=== PATIENT | male | born 1965 | race Caucasian/White ===

== ENCOUNTER → 2020-01-07 07:59 | Outpatient (BNVA) | payer OTHER, SELFPAY | PROVIDERS: PCP Orthopaedic Surgery; Referring Provider Orthopaedic Surgery; Visit Provider Physician Assistant | DX: Z76.89 Persons encountering health services in other specified circumstances (principal) ==

== ENCOUNTER 2020-01-19 14:00 | Outpatient (RCR) | payer OTHER, SELFPAY ==
--- NOTE | 2020-02-05 09:37 | MHC.PT.DC ---
[facility] [place] Office [place] Office [place] Office [address] Efra Lanza [address] [phone] F: [phone] F: [phone] F: [phone] F: [phone] Physical Therapy Discharge Report Diagnosis: neck pain Date of Surgery: NA Date of Evaluation: 11/16/19 Date of Discharge: 01/19/20 Treatments to Date: 14 Cancellations to Date: 0 No Shows to Date: 0 Discharge Status: Achieved Goals Improved Function Independent with HEP Discharge Summary: BEST placement is with my counterpressure on mid cervical spine and chin pressure at 75% of range of motion. Move until a light click of the esophagus during retraction. Keep head level because it makes a big difference. Pt shown how to reproduce this at home. He was told to do it hourly. The patient was educated about doing nerve glides intermittently. He was able to do cervical extension without peripheralization. However therapist OP caused right arm numbness. I instructed to stay with cervical retractions as HEP and to do retraction/extension cautiously. He was educated on red flags of cord compression, nerve compression. He was educated to stop exercises/stretches if symptoms progress Electronically signed by: Enedelia Grove DPT Please sign and return to therapist. Thank you for your referral.
== END 2020-02-05 13:32 | disposition other institution (70) ==
LOC: HO.PT 14:00
PROVIDERS: PCP Internal Medicine; Visit Provider Internal Medicine
DX: M50.30 Other cervical disc degeneration, unspecified cervical region (principal); M51.36 Other intervertebral disc degeneration, lumbar region
CPT/HCPCS: 93005; 97110; 97112; 97140

== ENCOUNTER 2020-02-04 07:15 | Outpatient (REF) | payer OTHER, SELFPAY ==
[2020-02-04 08:01] LABS: MANUAL DIFF FLAG NO
[2020-02-04 08:09] LABS: Basophils Percent Auto 0.4 % (0-2); Eosinophils Absolute Auto 0.2 X10*3/uL (0.0-0.4); Eosinophils Percent Auto 2.1 % (0-4); Hematocrit 45.3 % (42-52); Hemoglobin 15.4 g/dl (14.0-18.0); Imm Gran Abs Auto 0.02 X10*3/uL (0.00-0.03); Imm Gran Pct Auto 0.3 % (0.0-0.4); Lymphocytes Absolute Auto 2.8 X10*3/uL (1.2-4.9); Lymphocytes Percent Auto 38.2 % (20-40); Mean Corpuscular Hemoglobin 30.1 pg (27.0-33.0); Mean Corpuscular Volume 88.5 fL (80-98); Mean Platelet Volume 10.1 fL (9.4-12.4); Monocytes Absolute Auto 0.5 X10*3/uL (0.1-1.2); Monocytes Percent Auto 7.1 % (2-11); Neutrophils Absolute Auto 3.7 X10*3/uL (2.0-8.3); Neutrophils Percent Auto 51.9 % (45-73); Platelet Count 241 X10*3/uL (160-400); Red Blood Count 5.12 X10*6/uL (4.60-5.80); Red Cell Distribution Width 12.5 % (11.0-16.0); White Blood Count 7.2 X10*3/uL (4.8-10.8)
[2020-02-04 08:34] LABS: Alanine Aminotransferase 24 U/L (0-40); Albumin Level 4.4 g/dL (3.5-5.0); Alkaline Phosphatase 75 U/L (39-117); Anion Gap 12 (12-20); Aspartate Amino Transferase 18 U/L (5-37); Bilirubin Total 0.4 mg/dL (0.0-1.0); Blood Urea Nitrogen 27 mg/dL (9-16); C Reactive Protein 0.09 mg/dL (< or = 0.50); Calcium 9.1 mg/dL (8.4-10.2); Carbon Dioxide 24 mmol/L (22-29); Chloride 106 mmol/L (96-108); Cholesterol 100 mg/dL; Estimated Glomerular Filt Rate > 60; Glucose Fasting 143 mg/dL (60-99); HDL Cholesterol 25 mg/dL; Iron 72 mcg/dL (45-160); LDL Cholesterol Calculated 42 mg/dl; Magnesium 2.1 mg/dL (1.6-2.6); Percent Iron Saturation 22 % (15-50); Potassium 4.3 mmol/l (3.3-5.1); Sodium 138 mmol/L (135-145); Total Iron Binding Capacity 326 mcg/dL (228-428); Total Protein 6.9 g/dL (6.5-8.0); Triglycerides 167 mg/dL; Unsaturated Iron Binding 254 ug/dL
[2020-02-04 08:55] LABS: Ferritin 258 ng/mL (20-250); TSH reflex Free T4 2.02 mIU/mL (0.32-4.0); Vitamin D 25-OH Total 36.6 ng/mL (>30)
[2020-02-04 09:08] LABS: Prostate Specific Antigen Scr 0.55 ng/mL (<0.05-4.0); Thyroid Stimulating Hormone 1.97 uIU/mL (0.32-4.0)
[2020-02-04 09:23] LABS: Folate > 20.0 ng/mL (> or = 4.0); Vitamin B12 587 pg/mL (200-900); Vitamin B12 606 pg/mL (200-900)
[2020-02-04 10:23] LABS: Estimated Average Glucose 131 mg/dL; Hemoglobin A1c % 6.2 %
[2020-02-04 10:31] LABS: T4 Thyroxine 5.6 ug/dL (4.5-12.0)
[2020-02-05 12:17] LABS: Insulin Level Total 33.8 uIU/mL
[2020-02-05 21:43] LABS: Calcium (PTHI) 9.2 mg/dL (8.6-10.3); PTHI 43 pg/mL (14-64)
[2020-02-08 03:06] LABS: Zinc 65 mcg/dL (60-130)
[2020-02-08 13:07] LABS: Vitamin B1 8 nmol/L (8-30)
[2020-02-10 22:58] LABS: Vitamin A 51 mcg/dL (38-98)
== END 2020-02-04 07:16 | disposition home or self-care (01) ==
LOC: HO.LAB 07:15
PROVIDERS: Physician Assistant; Absent Provider Internal Medicine Cardiovascular Disease; PCP Internal Medicine; Visit Provider Internal Medicine
DX: E66.9 Obesity, unspecified (principal); I25.10 Atherosclerotic heart disease of native coronary artery without angina pectoris; I10 Essential (primary) hypertension; E78.5 Hyperlipidemia, unspecified; K21.9 Gastro-esophageal reflux disease without esophagitis; M50.30 Other cervical disc degeneration, unspecified cervical region; M51.36 Other intervertebral disc degeneration, lumbar region; G25.81 Restless legs syndrome
CPT/HCPCS: 36415; 80053; 80061; 82306; 82607; 82728; 82746; 83036; 83525; 83540; 83735; 83970; 84153; 84425; 84436; 84443; 84590; 84630; 85025; 86140

== ENCOUNTER → 2020-03-01 08:16 | Outpatient (BNVA) | payer OTHER, SELFPAY | PROVIDERS: PCP Internal Medicine; Visit Provider Physician Assistant | DX: Z76.89 Persons encountering health services in other specified circumstances (principal) ==

== ENCOUNTER → 2020-04-22 08:23 | Outpatient (BNVA) | payer OTHER, SELFPAY | PROVIDERS: PCP Internal Medicine; Visit Provider Dietitian, Registered ==

== ENCOUNTER 2020-11-24 08:00 | Outpatient (RCR) | payer OTHER, SELFPAY ==
--- NOTE | 2020-10-13 11:57 | MHC.PT.EP ---
[facility] [place] Office [place] Office [place] Office [address] Efra Lanza [address] [phone] F: [phone] F: [phone] F: [phone] F: [phone] Physical Therapy Plan of Care Date of Evaluation: Date of Surgery: none Diagnosis: low back pain Assessment: The patient arrived reporting low back pain after performing a week of building a deck which required lots of digging and manual labor. He has symptoms consistent with posterolateral derangements in his lower back. He appears to dysfunction on the left L4-5 and on the right at L1-2. He has poor squat mechanics, sitting posture, and sit to stand posture as well as poor bed mobility mechanics. I did preliminary education regarding neutral spine, and sitting/sleeping postures that will decrease aggravation to the spine. He responded best to neutral spine movements and did not tolerate REIL or legs in positional traction position. He will benefit from slow progression mechanical assessment to find positions and movements that can reduce his pain. He is an excellent candidate for skilled PT. Frequency and Duration: The patient will be seen 2x/week x 4 weeks Short Term Goals: 2 weeks 1.Pt to able to demonstrate proper sitting posture with the use of a lumbar roll to decrease aggravating factors. 2.Pt to be able to demonstrate proper posture for common leisure activities such as phone/tablet use. 3.For the patient to demonstrate proper upright sitting posture with use of the lumbar roll to improve compliance and carryover. Mcfp Goals: 4 weeks - 1.The patient to demonstrate proper lifting mechanics for household chore activities to show improved functional mobility. 2.The patient to report no leg or hip pain in order to show centralization of pain and reduction of lumbar derangement 3. Pt to be able to demonstrate self management of lumbar pain by demonstration of HEP. Treatment Plan: Modalities to reduce pain, spasms and effusion. Manual therapy to restore motion and function. Therapeutic exercise to improve strength and flexibility. Neuromuscular re-education for posture and balance. Therapeutic activities to return to functional activities of daily living. Electronically signed by: Enedelia Grove PT DPT Please sign and return to therapist. Thank you for your referral.
== END 2020-12-04 09:00 | disposition home or self-care (01) ==
LOC: HO.PT 08:00
PROVIDERS: PCP Internal Medicine; Visit Provider Internal Medicine
DX: M54.5 Low back pain (principal)
CPT/HCPCS: 97110; 97112; 97162

== ENCOUNTER → 2020-12-22 11:13 | Outpatient (BNVA) | payer OTHER, SELFPAY | PROVIDERS: PCP Internal Medicine; Referring Provider Internal Medicine; Visit Provider Internal Medicine Cardiovascular Disease | DX: I25.10 Atherosclerotic heart disease of native coronary artery without angina pectoris (principal); I10 Essential (primary) hypertension | CPT/HCPCS: 93005 ==

== ENCOUNTER → 2021-04-20 08:29 | Outpatient (REF) | payer OTHER, SELFPAY ==
--- NOTE | 2021-04-20 08:33 | CA_ITS ---
Transthoracic Echocardiogram Patient (Last, First, Middle): Jose Roberto Grimes J Gender: Male Date of : 1965 Age: 56 Procedure Date: 04/20/2021 Procedure Type: Transthoracic Echocardiogram Location: OP Height: 170.18 cm Weight: 104.33 kg BSA: 2.15 m2 Heart Rate: bpm BP: 126 / 80 mmHg Pulpwood Cutter: TRINITY Referring MD: Dave Tolentino MD Symptoms: I10 - Essential (primary) hypertension Study Quality: Good ECG Rhythm: Sinus Conclusions: - The left ventricular systolic function is normal. The visually estimated ejection fraction is between 60-65%. - No obvious valvular pathology seen on this study. Findings Left Ventricle Normal left ventricular cavity size. There is mildly increased left ventricular wall thickness. The left ventricular systolic function is normal. The visually estimated ejection fraction is between 60-65%. There is no evidence of regional wall motion abnormalities. LV peak GLS -17.3%. Right Ventricle Normal right ventricular cavity size and systolic function. Atria Both atria are normal in size. Aortic Valve There is a normal trileaflet aortic valve. There is no aortic valve stenosis. There is no aortic valve regurgitation. Mitral Valve The mitral valve appears normal. There is no mitral valve regurgitation. There is no mitral valve stenosis. Pulmonic Valve The pulmonic valve was not well visualized. Tricuspid Valve Normal tricuspid valve structure. There is trace tricuspid valve regurgitation. The pulmonary artery systolic pressure is normal. Great Vessels The aortic annulus, sinuses of valsalva, and asc aorta are normal in size. Venous The inferior vena cava is normal in size and collapses greater than 50% with inspiration. Pericardium/Pleural There is no evidence of pericardial effusion. Prior Study Comparison No significant change compared to prior study dated: 08/23/2015. Recommendations, Care & Conclusions No obvious valvular pathology seen on this study. Measurements M-Mode Liner Measurements Normals - Women/Men IVSd: 1.61 0.6-0.9/0.6-1.0 cm LVIDd: 4.47 3.9-5.3/4.2-5.9 cm LVIDd Index: 2.08 1.9-3.2 cm/m2 LVIDs: 2.65 2.0-3.8 cm LVPWd: 1.43 0.6-0.9/0.6-1.0 cm LV Mass: 347.62 67-162/88-224g LV Mass Index: 161.68 43-95/49-115 g/m2 M-Mode Volumes LV EDV: 91.00 LV ESV: 25.80 2D Linear Measurements IVSd: 1.36 0.6-0.9/0.6-1.0 cm LVIDd: 4.37 3.9-5.3/4.2-5.9 cm LVIDd Index: 2.03 2.4-3.2/2.2-3.1 cm/m2 LVIDs: 2.31 2.0-3.6 cm LVPWd: 1.21 0.7-1.1 cm Ao Root: 3.50 2.1-3.5 cm LA Diam: 3.80 2.7-3.8/3.0-4.0 cm LAIDs Index: 1.77 1.5-2.3 cm/m2 LV Mass: 260.83 67-162/88-224 g LV Mass Index: 121.32 43-95/49-115 g/m2 LVOT Diam: 2.10 3.0+(-)1.3 cm 2D Systolic Function EF 4C: 70.70 >55% M-Mode Systolic Function FS: 40.70 27-47/25-43% LVEF: 71.60 >55% Mitral Valve MV Pk E: 0.70 MV PK A: 0.63 MV Decel Time: 218.00 E/A: 1.10 E'Lateral: 8.59 E'Medial: 6.53 E/E' Med: 10.80 E/E' Lat: 8.20 PHT: 64.00 MVA PHT: 3.44 Decel [place]: 3.22 Aortic Valve AoV Pk Jerry: 1.28 AoV Pk Grad: 7.00 LVOT LVOT Pk Jerry: 1.03 LVOT Mn Jerry: 0.72 LVOT VTI: 0.22 LVOT Pk Grad: 4.00 LVOT Mn Grad: 2.00 LVOT Diam: 2.10 LVOT Area: 3.46 Diastolic Function MV Pk E: 0.70 MV Pk A: 0.63 E/A: 1.10 E'Medial: 6.53 E/E' Med: 10.80 E' Laterial: 8.59 E/E' Lat: 8.20 Right Ventricle TAPSE (mm): 3.10 TVS' Jerry: 15.80 Tricuspid Valve TR Pk Jerry: 1.63 TR Pk Grad: 11.00 RA Press: 3.00 RVSP: 14.00 Great Vessels Aorta Ao Root-2D: 3.50 2.0-3.7 cm Ao Asc: 3.30 2.1-3.4 cm Updated in Other Vendor System with Status of Final Ki Mills MD electronically signed on 04/22/2021 1:14:44 PM with status of Final
== END ==
LOC: HO.CARD 08:29
PROVIDERS: PCP Internal Medicine; Visit Provider Internal Medicine Cardiovascular Disease
DX: I10 Essential (primary) hypertension (principal)
CPT/HCPCS: 93306; 93356

== ENCOUNTER → 2021-05-26 15:18 | Outpatient (BNVA) | payer OTHER, SELFPAY | PROVIDERS: PCP Internal Medicine | DX: Z13.89 Encounter for screening for other disorder (principal) | CPT/HCPCS: 99202 ==

== ENCOUNTER → 2021-05-29 08:28 | Outpatient (BNVA) | payer OTHER, SELFPAY | PROVIDERS: PCP Internal Medicine | DX: Z13.89 Encounter for screening for other disorder (principal) | CPT/HCPCS: 99213 ==

== ENCOUNTER → 2021-08-14 11:45 | Outpatient (BNVA) | payer OTHER, SELFPAY | PROVIDERS: PCP Internal Medicine; Visit Provider Physician Assistant Medical | DX: Z13.89 Encounter for screening for other disorder (principal) | CPT/HCPCS: 73564; 99203 ==

== ENCOUNTER → 2021-08-18 07:48 | Outpatient (BNVA) | payer OTHER, SELFPAY | PROVIDERS: PCP Internal Medicine; Visit Provider Physician Assistant Medical | DX: Z13.89 Encounter for screening for other disorder (principal) | CPT/HCPCS: 99213 ==

== ENCOUNTER → 2021-08-21 09:44 | Outpatient (BNVA) | payer OTHER, SELFPAY | PROVIDERS: PCP Internal Medicine; Visit Provider Physician Assistant Medical | DX: Z13.89 Encounter for screening for other disorder (principal) | CPT/HCPCS: 99213 ==

== ENCOUNTER 2021-09-29 07:18 | Outpatient (REF) | payer OTHER, SELFPAY ==
--- NOTE | ~2021-09-29 | XR_ITS ---
EXAMINATION: KNEE X-RAY CLINICAL INFORMATION: Pain COMPARISON: Previous x-ray July 2021 TECHNIQUE: Standing AP view of both knees and lateral and sunrise view of the right knee FINDINGS: Right knee: There is varus angulation. Bone alignment is otherwise normal. No fracture or dislocation is seen. There is severe arthritis at the medial femoral tibial and patellofemoral joints. There is a joint effusion. Standing AP view of the left knee is unremarkable. XR/XR knee RT 2V IMPRESSION: Right knee: Varus angulation, arthritis and joint effusion.
--- NOTE | ~2021-09-29 | XR_ITS ---
EXAMINATION: KNEE X-RAY CLINICAL INFORMATION: Pain COMPARISON: Previous x-ray July 2021 TECHNIQUE: Standing AP view of both knees and lateral and sunrise view of the right knee FINDINGS: Right knee: There is varus angulation. Bone alignment is otherwise normal. No fracture or dislocation is seen. There is severe arthritis at the medial femoral tibial and patellofemoral joints. There is a joint effusion. Standing AP view of the left knee is unremarkable. XR/XR knee standing BI IMPRESSION: Right knee: Varus angulation, arthritis and joint effusion.
== END 2021-09-29 07:19 | disposition home or self-care (01) ==
LOC: HO.HOSX 07:18
PROVIDERS: Visit Provider Physician Assistant
DX: M17.11 Unilateral primary osteoarthritis, right knee (principal); M70.51 Other bursitis of knee, right knee; M25.562 Pain in left knee
CPT/HCPCS: 20610; 73560; 73565; 99202; J1020

== ENCOUNTER → 2021-10-19 09:46 | Outpatient (BNVA) | payer OTHER, SELFPAY | PROVIDERS: PCP Internal Medicine; Visit Provider Physician Assistant Medical | DX: Z13.89 Encounter for screening for other disorder (principal) | CPT/HCPCS: 99213 ==

== ENCOUNTER → 2021-12-19 12:57 | Outpatient (BNVA) | payer OTHER, SELFPAY | PROVIDERS: PCP Internal Medicine; Referring Provider Internal Medicine; Visit Provider Internal Medicine Cardiovascular Disease | DX: I25.10 Atherosclerotic heart disease of native coronary artery without angina pectoris (principal); I10 Essential (primary) hypertension | CPT/HCPCS: 93005 ==

== ENCOUNTER → 2022-08-22 13:49 | Outpatient (BNVA) | payer OTHER, SELFPAY | PROVIDERS: PCP Internal Medicine; Visit Provider Physician Assistant | DX: Z13.89 Encounter for screening for other disorder (principal) | CPT/HCPCS: 11730; 99203 ==

== ENCOUNTER → 2022-08-24 13:48 | Outpatient (BNVA) | payer OTHER, SELFPAY | PROVIDERS: PCP Internal Medicine; Visit Provider Internal Medicine | DX: Z13.89 Encounter for screening for other disorder (principal) | CPT/HCPCS: 99213 ==

== ENCOUNTER 2022-10-31 09:08 | Outpatient (AMB) | payer OTHER, SELFPAY ==
[2022-10-31 09:12] VITALS: BP 132/70; PULSE 84; O2SAT 98; BMI 37.1
--- NOTE | 2022-10-31 09:12 | A.OFFPC_ITS ---
Vital Signs 10/31/22 09:12 Height 5 ft 7 in Weight 237 lb BMI 37.1 BP 132/70 Blood Pressure Location Lt brachial Position Sitting Pulse 84 Pulse Source Pulse Oximeter Pulse Oximetry (%) 98 Oxygen Delivery Method Room Air Intake Visit Reasons: PE Allergies No Known Allergies Allergy (Verified 10/31/22 09:13) Medication List - Last Reconciled 10/31/22 by Tor Sullivan MD aspirin 81 mg PO DAILY atorvastatin 80 mg PO DAILY gabapentin 100 mg PO BEDTIME 30 days lidocaine 5% 1 appl topical TID PRN lisinopril 10 mg PO DAILY 90 days metoprolol tartrate 50 mg PO BID nitroglycerin 0.4 mg sublingual Q5M PRN pantoprazole 40 mg PO DAILY polymyxin B sulf-trimethoprim 10,000 unit- 1 mg/mL (Polytrim) 1 drp ophthalmic (eye) Q3H 7 days ranolazine ER 500 mg PO BID ropinirole 0.5 mg (2 x 0.25 mg) PO BEDTIME Tobacco use date assessed: 10/31/22 Dental Screening Dental Screen Date: 10/31/22 Did you have a dental visit in the last 12 months?: Yes Did you have a dental problem in the last 6 months where you did not have access to dental care?: No Was dental information given to patient?: Patient has dentist HPI PE HPI Details 57-year-old obese male with coronary artery disease hypertension hy percholesterolemia GERD impaired glucose tolerance and degenerative disc disease coming in for physical exam. Last seen in September 2021 and blood work was requested at that time. Colonoscopy is up-to-date 2018. Cardiology last seen in November 2021 continuing with aggressive medical therapy aspirin statin LDL goal of less than 70 weight loss program as for the blood pressure target goal of 130/84 continued lisinopril last blood work was 2020. seen target and states lacrimal duct plugged. - states having greenish discharge and concern about infection. dizzy - 2 week s feels tired, not passing , PFSH Medical History (Updated 10/31/22 @ 09:40 by Tor Sullivan MD) Anxiety CAD (coronary artery disease) Carpal tunnel syndrome Degenerative disc disease GERD (gastroesophageal reflux disease) History of COVID-19 HTN (hypertension) Hyperlipidemia Impaired fasting glucose Obesity (BMI 30-39.9) Restless leg syndrome Vitamin B12 deficiency Surgical History History of colonoscopy History of esophagogastroduodenoscopy (EGD) History of meniscectomy of right knee History of right knee surgery History of root canal procedure Hx of cardiac cath Stented coronary artery Family History (Updated 10/31/22 @ 09:14 by Mariann Burton CMA) Father CAD (coronary artery disease) Mother Diabetes Lung cancer Social History (Updated 10/31/22 @ 09:45 by Tor Sullivan MD) Housing: Apartment Alcohol intake: never Patient Tobacco Use Status: Former Tobacco user Tobacco use type: Cigarette Years Smoked: quit 1999 hx of 2 pack a day e-Cigarette/Vaping Use: Never Used Second Hand Smoke Exposure: Yes Current occupational status: employed Cognitive needs: No Hearing needs: No Vision needs: No Questionnaire PHQ-9 Over the last 2 weeks, how often have you been bothered by any of the following problems? 1. Little interest or pleasure in doing things: not at all 2. Feeling down, depressed, or hopeless: not at all 3. Trouble falling or staying asleep, or sleeping too much: not at all 4. Feeling tired or having little energy: not at all 5. Poor appetite or overeating: not at all 6. Feeling bad about yourself - or that you are a failure or have let yourself or your family down: not at all 7. Trouble concentrating on things, such as reading the newspaper or watching television: not at all 8. Moving or speaking so slowly that other people could have noticed. Or the opposite - being so fidgety or restless that you have been moving around a lot more than usual: not at all 9. Thoughts that you would be better off or of hurting yourself in some way: not at all Total score: 0 Source: Developed by Drs. Ludin Beltran, Digna Blancas, Carrington Oquendo and colleagues, with an educational eliseo from [employer]. Thrive Questionnaire Date Thrive assessed: 10/31/22 I am a: Patient What is your living situation today?: I have a steady place to live Within the past 12 months, did the food you bought not last and you didn't have the money to get more?: Never true Within the past 12 months, did you worry whether your food would run out before you got money to buy more?: Never true Do you have trouble paying for medicines?: No Do you have trouble getting transportation to medical appointments?: No Do you have trouble paying your heating and electricity bill?: No Do you have trouble taking care of your child, family member or friend?: No Do you have trouble with day-to-day activities such as bathing, preparing meals, shopping, managing finances, etc.?: No Are you currently unemployed and looking for a job?: No Are you interested in more education?: No Currently or been in a relationship where the following occur: no concerns reported AUDIT C Alcohol Use Questionnaire (AUDIT-C) 1. How often do you have a drink containing alcohol?: Never 3. How often do you have six or more drinks on one occasion?: Never Total Score: 0 JAZZMINE-7 AMB Questionnaire JAZZMINE-7 Date JAZZMINE - 7 assessed: 10/31/22 Feeling nervous, anxious, or on edge: 0 = Not at all Not being able to stop or control worryin = Not at all Worrying too much about different things: 0 = Not at all Trouble relaxin = Not at all Being so restless that it is hard to sit still: 0 = Not at all Becoming easily annoyed or irritable: 0 = Not at all Feeling afraid as if something awful might happen: 0 = Not at all Total JAZZMINE-7 score (0-4 normal; 5-9 mild; 10-14 moderate; 15-21 severe): 0 Source: Developed by Drs. Ludin Beltran, Digna Blancas, Carrington Oquendo and colleagues, with an educational eliseo from [employer]. Review of Systems Const Denies poor appetite and Denies weakness Eyes Denies no additional complaints ENT Reports Normal hearing present, Denies dizziness, Denies nasal congestion, Denies tinnitus and Denies sore throat Card Denies chest pain, Denies syncope, Denies rapid heart rate and Denies dyspnea Resp Denies cough and Denies dyspnea GI Denies change in stool character, Reports constipation, Denies diarrhea, Denies nausea and Denies vomiting Denies dysuria and Denies urinary frequency Neuro Reports Normal hearing present, Denies confusion, Denies dizziness, Denies syncope and Denies weakness Psych Denies confusion Physical exam (Primary Care) Vital Signs: Last Vital Signs Pulse 84 10/31/22 09:12 BP 132/70 10/31/22 09:12 Pulse Ox 98 10/31/22 09:12 Oxygen Delivery Method Room Air 10/31/22 09:12 Care Plan Goal for BP management: L big toe nail white and unroofed guaiac negative prostate N BMI result Body Mass Index 37.1 Tobacco/Smoking Status: Tobacco use Status Tobacco use date assessed 10/31/22 10/31/22 09:17 Patient Tobacco Use Status Former Tobacco user 10/31/22 09:17 Tobacco use type Cigarette 10/31/22 09:17 e-Cigarette/Vaping Use Never Used 10/31/22 09:17 PHQ-9: PHQ-9 Score PHQ-9: Total score 0 10/31/22 09:17 Thrive Assessment: Date of Thrive Assessment Date Thrive assessed 10/31/22 10/31/22 09:17 Currently or been in a relationship where the following occur: no concerns reported Const General: No confusion Orientation/consciousness: No confusion HENMT Head: Yes normocephalic Ears: external ears normal and TM's normal bilaterally Face and sinus: Yes normal facial exam Mouth: moist mucous membranes Throat: Yes tonsils normal Eyes Conjunctivae: conjunctivae normal Pupils: Equal, round and reactive pupils present and Pupil accommodation reflex normal Direct Ophthalmoscopy: normal light reflex Neck Neck: No lymphadenopathy Thyroid: Thyroid normal Chest Chest palpation & inspection: normal inspection of the chest Resp Effort & Inspection: normal respiratory effort and no audible wheezes Auscultation: clear to auscultation bilaterally, no crackles, no wheezes and lung sounds not diminished Cardio Rate: regular rate Rhythm: regular rhythm Peripheral pulses: radial pulses present and dorsalis pedis present GI Palpation (GI): no masses Auscultation: normal bowel sounds and normoactive bowel sounds Male General Exam: Yes normal external exam Skin General skin exam: no rashes or lesions noted Rashes: no rashes Neuro General: No confusion Cranial nerves: Yes Equal, round and reactive pupils present and Yes Normal hearing present Cognition (Neuro): normal cognition Gait exam (Neuro): Normal gait present Motor exam (neuro): 5/5 motor strength present throughout Deep tendon reflexes (DTR's): Right brachioradialis reflex intensity grade: 2+, Left brachioradialis reflex intensity grade: 2+, Right patellar reflex intensity grade: 2+ and Left patellar reflex intensity grade: 2+ Extrem General: No edema Assessment and Plan Assessment & Plan (1) Annual physical exam: Code(s): Z00.00 - Encounter for general adult medical examination without abnormal findings (2) CAD (coronary artery disease): Comment: (MIKE to proximal LAD - 09/2014) Code(s): I25.10 - Atherosclerotic heart disease of [place] coronary artery without angina pectoris Plan: Control the cholesterol, weight, blood pressure (3) HTN (hypertension): Code(s): I10 - Essential (primary) hypertension (4) Hyperlipidemia: Code(s): E78.5 - Hyperlipidemia, unspecified Plan: Continue with blood pressure medication. Decrease salt intake and exercise continue with lisinopril 10 mg once a day metoprolol 50 mg twice a day (5) GERD (gastroesophageal reflux disease): Code(s): K21.9 - Gastro-esophageal reflux disease without esophagitis Plan: Avoid the foods that causes that usually spicy foods, tomato products, juices, coffee, soda and foods that your sensitive to. After eating do not lie down, allow 3-4 hours before in lie down. And keep the head of bed above 30 degrees to avoid the acid from going up. (6) Obesity (BMI 30-39.9): Code(s): E66.9 - Obesity, unspecified Plan: Diet and exercise (7) Impaired glucose tolerance: Code(s): R73.02 - Impaired glucose tolerance (oral) Plan: Decrease the amount of carbohydrate intake, pasta, bread, rice and potatoes are all sugar and that is aside from all the sweet stuff, remember that fruits are good but they are Sweet also. 2019 blood work showing A1c of 6.2 patient needs blood work (8) Degenerative disc disease: Comment: Cervical and lumbar, 1997 lumbar disc herniation, MRI January 2019 multiple disc protrusions and severe spinal stenosis, lumbar multilevel spondylosis with thecal sac distortion Plan: Keep active lose the weight (9) Knee osteoarthritis: Code(s): M17.9 - Osteoarthritis of knee, unspecified (10) Conjunctivitis: Code(s): H10.9 - Unspecified conjunctivitis (11) Restless leg syndrome: Code(s): G25.81 - Restless legs syndrome Orders: Orders Vitamin B12 and Folate Today I25.10 - Atherosclerotic heart disease of [place] coronary artery without angina pectoris Comprehensive Met. Panel Today I25.10 - Atherosclerotic heart disease of [place] coronary artery without angina pectoris Hemoglobin A1c Today R73.02 - Impaired glucose tolerance (oral) Lipid Panel Today E78.00 - Pure hypercholesterolemia, unspecified, I25.10 - Atherosclerotic heart disease of [place] coronary artery without angina pectoris Prostate Specific Antigen Scr Today I10 - Essential (primary) hypertension Free T4 (Free Thyroxine) Today I25.10 - Atherosclerotic heart disease of [place] coronary artery without angina pectoris Thyroid Stimulating Hormone Today I25.10 - Atherosclerotic heart disease of [place] coronary artery without angina pectoris Complete Blood Count Auto Diff Today I25.10 - Atherosclerotic heart disease of [place] coronary artery without angina pectoris Medications: New polymyxin B sulf-trimethoprim 10,000 unit- 1 mg/mL (Polytrim) while awake; do not exceed 6 doses in 24 hours 1 drp ophthalmic (eye) Q3H 7 days 10 mL 0RF H10.9 - Unspecified conjunctivitis lidocaine 5% leave on most painful area for up to 12 hrs 2 patches topical DAILY 180 ea 3RF Changed From ropinirole 0.5 mg (2 x 0.25 mg) PO BEDTIME 180 tabs 1RF G25.81 - Restless legs syndrome To ropinirole 0.75 mg (3 x 0.25 mg) PO BEDTIME 90 days 270 tabs 1RF G25.81 - Restless legs syndrome Discontinued lidocaine 5% Discontinued Reason: Doctor's Order 1 appl topical TID PRN 35.44 grams 0RF pain Coding Level of Care Code Est Pt Prev Care 40-64y([id number]) Diagnoses Annual physical exam Z00.00 CAD (coronary artery disease) I25.10 HTN (hypertension) I10 Hyperlipidemia E78.5 GERD (gastroesophageal reflux disease) K21.9 Obesity (BMI 30-39.9) E66.9 Impaired glucose tolerance R73.02 Degenerative disc disease Knee osteoarthritis M17.9 Conjunctivitis H10.9 Restless leg syndrome G25.81
== END 2022-10-31 10:07 | disposition home or self-care (01) ==
PROVIDERS: PCP Internal Medicine; Visit Provider Internal Medicine
DX: Z00.00 Encounter for general adult medical examination without abnormal findings (principal); I10 Essential (primary) hypertension; K21.9 Gastro-esophageal reflux disease without esophagitis; I25.10 Atherosclerotic heart disease of native coronary artery without angina pectoris; E78.5 Hyperlipidemia, unspecified; E66.9 Obesity, unspecified; R73.02 Impaired glucose tolerance (oral); M17.9 Osteoarthritis of knee, unspecified; H10.9 Unspecified conjunctivitis; G25.81 Restless legs syndrome
CPT/HCPCS: 99396

== ENCOUNTER 2022-12-17 06:46 | Outpatient (REF) | payer OTHER, SELFPAY ==
[2022-12-17 06:55] LABS: MANUAL DIFF FLAG NO
[2022-12-17 07:19] LABS: Basophils Percent Auto 0.4 % (0-2); Eosinophils Absolute Auto 0.2 X10*3/uL (0.0-0.4); Eosinophils Percent Auto 3.2 % (0-4); Hemoglobin 15.1 g/dl (14.0-18.0); Imm Gran Abs Auto 0.02 X10*3/uL (0.00-0.03); Imm Gran Pct Auto 0.3 % (0.0-0.4); Lymphocytes Percent Auto 42.5 % (20-40); Mean Corpuscular HGB Conc 35.1 g/dl (31.0-36.0); Mean Corpuscular Hemoglobin 31.2 pg (27.0-33.0); Mean Corpuscular Volume 88.8 fL (80.0-98.0); Mean Platelet Volume 10.1 fL (9.4-12.4); Monocytes Absolute Auto 0.6 X10*3/uL (0.1-1.2); Monocytes Percent Auto 8.2 % (2-11); Neutrophils Absolute Auto 3.2 x10*3/uL (2.0-8.3); Neutrophils Percent Auto 45.4 % (45-73); Platelet Count 226 X10*3/uL (160-400); Red Blood Count 4.84 X10*6/uL (4.60-5.80); Red Cell Distribution Width 12.6 % (11.0-16.0); White Blood Count 6.9 X10*3/uL (4.8-10.8)
[2022-12-17 08:06] LABS: Alanine Aminotransferase 29 U/L (0-40); Albumin Level 4.3 g/dL (3.5-5.0); Alkaline Phosphatase 78 U/L (39-117); Anion Gap 13 (12-20); Aspartate Amino Transferase 22 U/L (5-37); Bilirubin Total 0.8 mg/dL (0.0-1.0); Blood Urea Nitrogen 16 mg/dL (9-16); Calcium 9.3 mg/dL (8.4-10.2); Carbon Dioxide 25 mmol/L (22-29); Chloride 105 mmol/L (96-108); Cholesterol 87 mg/dL (<200); Estimated Glomerular Filt Rate > 60; Glucose Random 153 mg/dL (60-115); HDL Cholesterol 24 mg/dL (>40); LDL Cholesterol Calculated 45 mg/dL (<100); Potassium 4.4 mmol/L (3.3-5.1); Sodium 139 mmol/L (135-145); Total Protein 6.8 g/dL (6.5-8.0); Triglycerides 93 mg/dL (<150)
[2022-12-17 08:13] LABS: Free T4 (Free Thyroxine) 0.81 ng/dL (0.71-1.85); Thyroid Stimulating Hormone 2.28 uIU/mL (0.32-4.0)
[2022-12-17 08:23] LABS: Folate 15.9 ng/mL (> or = 4.0); Prostate Specific Antigen Scr 0.38 ng/mL (<0.05-4.0); Vitamin B12 1072 pg/mL (200-900)
[2022-12-17 08:27] LABS: Estimated Average Glucose 140 mg/dL; Hemoglobin A1c % 6.5 % (<6.0)
== END 2022-12-17 06:47 | disposition home or self-care (01) ==
LOC: HO.LAB 06:46
PROVIDERS: PCP Internal Medicine; Visit Provider Internal Medicine
DX: Z12.5 Encounter for screening for malignant neoplasm of prostate (principal); I25.10 Atherosclerotic heart disease of native coronary artery without angina pectoris; E78.00 Pure hypercholesterolemia, unspecified; R73.02 Impaired glucose tolerance (oral); I10 Essential (primary) hypertension
CPT/HCPCS: 36415; 80053; 80061; 82607; 82746; 83036; 84153; 84439; 84443; 85025

== ENCOUNTER 2022-12-20 12:42 | Outpatient (AMB) | payer OTHER, SELFPAY ==
[2022-12-20 12:46] VITALS: BP 124/74; PULSE 72; BMI 37.3
--- NOTE | 2022-12-20 12:46 | MHC.OFFVIS ---
Intake Vital Signs 12/20/22 12:46 Height 5 ft 7 in Weight 238 lb 1.588 oz BMI 37.3 BP 124/74 Blood Pressure Location Lt brachial Position Sitting Pulse 72 Intake Visit Reasons: 1 year follow up Intake Note: 1 year follow-up feeling good [employer] Required: No Allergies No Known Allergies Allergy (Verified 10/31/22 09:13) Medication List - Last Reconciled 12/20/22 by Dave Tolentino MD aspirin 81 mg PO DAILY atorvastatin 80 mg PO DAILY gabapentin 100 mg PO BEDTIME 30 days lidocaine 5% 2 patches topical DAILY lisinopril 10 mg PO DAILY 90 days metoprolol tartrate 50 mg PO BID nitroglycerin 0.4 mg sublingual Q5M PRN pantoprazole 40 mg PO DAILY polymyxin B sulf-trimethoprim 10,000 unit- 1 mg/mL (Polytrim) 1 drp ophthalmic (eye) Q3H 7 days ranolazine ER 500 mg PO BID ropinirole 0.75 mg (3 x 0.25 mg) PO BEDTIME 90 days HPI HPI Comments History of Present Illness Details Jose Roberto comes for follow-up. He said overall he has slow down. He is having issues with the knee and symptoms with exertion but is not interested in currently pursuing knee surgery. He also has spine issues. When he is bending over and working on my new job for long period time he gets tingling in his hands and chest pain. Symptoms usually does not happen when he is exerting himself. Takes all his medications. Does not monitor blood pressure usually on a regular basis. His last LDL is 45 mg/dL. [facility] Medical History History of COVID-19 Restless leg syndrome Degenerative disc disease Anxiety Vitamin B12 deficiency Impaired fasting glucose Carpal tunnel syndrome GERD (gastroesophageal reflux disease) Obesity (BMI 30-39.9) Hyperlipidemia HTN (hypertension) CAD (coronary artery disease) Surgical History History of esophagogastroduodenoscopy (EGD) History of colonoscopy History of meniscectomy of right knee History of right knee surgery History of root canal procedure Stented coronary artery Hx of cardiac cath Family History Father CAD (coronary artery disease) Mother Diabetes Lung cancer Social History Housing: Apartment Alcohol intake: never Patient Tobacco Use Status: Former Tobacco user Tobacco use type: Cigarette Years Smoked: quit 2000 hx of 2 pack a day e-Cigarette/Vaping Use: Never Used Second Hand Smoke Exposure: Yes Current occupational status: employed Cognitive needs: No Hearing needs: No Vision needs: No Review of Systems Const Denies chills, Denies fatigue, Denies fever(s), Denies frequent falls, Denies weakness, Denies weight gain and Denies weight loss ENT Denies dizziness Card Denies chest pain, Denies leg edema, Denies lightheadedness, Denies palpitations, Denies dyspnea, Denies dyspnea on exertion, Denies orthopnea and Denies other (loss of consciousness) Resp Denies cough, Denies dyspnea and Denies dyspnea on exertion GI Denies hematochezia and Denies change in stool character Musc Denies abnormal gait, Denies muscle weakness, Denies numbness, Denies radiating pain into limb and Denies tingling Neuro Denies abnormal gait, Denies dizziness, Denies frequent falls, Denies numbness, Denies tingling and Denies weakness Endo Denies fatigue and Denies palpitations Physical Exam Vital Signs: Last Vital Signs Pulse 72 12/20/22 12:46 BP 124/74 12/20/22 12:46 BMI result Body Mass Index 37.3 Const General: cooperative, healthy appearing, comfortable, no acute distress, alert and awake Nutritional Appearance: obese Orientation/consciousness: patient oriented x3 Limitations: no limitations HEENT Head: Yes normal to inspection, Yes normocephalic and Yes atraumatic Eyes General: appearance normal, both eyes and all related structures Neck Neck: Yes trachea midline and Yes no JVD Carotids: other ( No carotid bruit) Chest Chest palpation & inspection: normal inspection of the chest Resp Effort & Inspection: normal respiratory effort Auscultation: clear to auscultation bilaterally Cardio Jugular venous distension: no JVD Palpation: normal PMI Rate: regular rate Rhythm: regular rhythm Heart sounds: S1 normal heart sound present, S2 normal heart sound present and Other heart sounds present ( S4 present) Peripheral pulses: Peripheral pulses 2+ throughout GI Inspection: Yes normal to inspection and Yes obesity Auscultation: normal bowel sounds Skin General skin exam: elasticity normal and turgor normal Neuro General: patient oriented x3 and no focal motor deficits Extrem General: Yes no clubbing, cyanosis or edema Psych Appearance: grossly normal Office Procedures EKG Details: EKG shows normal sinus rhythm with normal EKG at 72 beats per minute [id number], Complete Assessment & Plan Assessment & Plan (1) CAD (coronary artery disease): Comment: (MIKE to proximal LAD - 09/2014) Code(s): I25.10 - Atherosclerotic heart disease of [place] coronary artery without angina pectoris Plan: Stable CAD with drug-eluting stent to LAD for angina in 2014. No recurrent symptoms since then. Currently well managed. Continue low-dose aspirin therapy. LDL is extremely well optimized, continue high-intensity statin therapy. Continue aggressive management of blood pressure. Encouraged to increase his activity level and participate in weight loss program. Advised to call me with any new symptoms. (2) HTN (hypertension): Code(s): I10 - Essential (primary) hypertension Plan: Hypertension which is currently well optimized on dual therapy. Advised to monitor blood pressure at home maintain a log. Goal blood pressure less than 130/84. Advised low-salt diet. Advised to maintain activity level and participate in weight loss program. Follow up in the clinic in 1 year's time, sooner p.r.n.. Thank you for allowing me to partake in his care Coding Level of Care Code Est Pt Level 4 (27339) Diagnoses CAD (coronary artery disease) I25.10 HTN (hypertension) I10 CPT Codes EKG - CPT: 65803-[id number], Complete ([id number])
== END 2022-12-20 13:05 | disposition home or self-care (01) ==
PROVIDERS: Visit Provider Internal Medicine Cardiovascular Disease
DX: I25.10 Atherosclerotic heart disease of native coronary artery without angina pectoris (principal); I10 Essential (primary) hypertension
CPT/HCPCS: 93010; 99214

== ENCOUNTER → 2022-12-20 12:42 | Outpatient (BNVA) | payer OTHER, SELFPAY | PROVIDERS: Visit Provider Internal Medicine Cardiovascular Disease | DX: I25.10 Atherosclerotic heart disease of native coronary artery without angina pectoris (principal); I10 Essential (primary) hypertension; Z79.82 Long term (current) use of aspirin | CPT/HCPCS: 93005 ==

== ENCOUNTER 2023-01-29 10:29 | Outpatient (REF) | payer OTHER, SELFPAY ==
--- NOTE | ~2023-01-29 | MR_ITS ---
EXAMINATION: MR LUMBAR SPINE WITHOUT CONTRAST CLINICAL INFORMATION: Chronic back and bilateral leg radiculopathy. COMPARISON: MRI dated 02/06/2019. TECHNIQUE: Multiplanar, multisequence imaging was obtained. FINDINGS: VERTEBRAL BODIES AND PARASPINAL STRUCTURES: Mild rightward curvature of the upper lumbar spine noted. There is extensive multilevel disc space narrowing with chronic fatty marrow endplate changes. Mild posterior subluxations evident at multiple levels. There is significant endplate edema at the L1-L2 level, worsened compared to the prior study. Previous endplate edema at the L2-L3 and L4-L5 levels has nearly normalized. No compression fractures are seen. CONUS MEDULLARIS AND CAUDA EQUINE: Epidural lipomatosis again visible throughout the lumbar spinal canal contributing to varying degrees of thecal sac distortion, as on prior imaging. No signal abnormality is seen within the distal cord, conus tip, or cauda equina nerve roots. SPINAL LEVELS: On sagittal T2-weighted imaging at the T10-T11 level, there is an anterior subluxation and hypertrophic facet arthropathy, worse on the left side with severe left foraminal encroachment. There is at least a mild degree of central canal stenosis suspected at this level as well with mild impression upon the thecal sac. At the T11-T12 and T12-L1 levels, there is moderate loss of disc height with mild degenerative disc bulges. No central canal stenosis or foraminal narrowing is evident at these levels. L1-L2: Significant endplate edema, new compared to prior imaging with a posterior subluxation. Worsened loss of disc height has developed at this level. Broad-based disc bulge again evident with mild facet arthropathy. Mild epidural fat prominence posteriorly contributes to [id number] thecal sac distortion. Mild central canal stenosis and [id number]-[id number] foraminal narrowing is otherwise stable. L2-L3: Stable moderate loss of disc height and diffuse disc bulge with hypertrophic facet arthropathy and dorsal epidural lipomatosis resulting in [id number] thecal sac distortion. Mild central canal stenosis, bulging disc and osseous spurring resulting in mild foraminal encroachment. L3-L4: Posterior subluxation and broad-based disc bulge again evident with dorsal epidural lipomatosis and moderate facet arthropathy. Moderate degree of thecal sac distortion is mildly improved from the prior exam. Mild central canal stenosis. Broad-based right posterolateral disc protrusion and endplate spurring again evident with mass effect upon the extraforaminal right L3 nerve root. Nkxo-[id number]-uwbqaokq bilateral foraminal narrowing. L4-L5: Severe loss of disc height and retrosubluxation again evident with a diffuse disc bulge and moderate facet arthropathy. Moderate central canal stenosis with epidural lipomatosis resulting in stable severe thecal sac compression. Focal left lateral recess disc extrusion is again visible with compression of the left L5 nerve root. Significant left foraminal narrowing is stable with milder right foraminal encroachment. L5-S1: Mild disc bulge and loss of disc height with moderate facet arthropathy, as on prior imaging with epidural fat prominence and thecal sac distortion, otherwise stable. No significant central canal stenosis or foraminal narrowing. MR/MR lumbar spine wo con IMPRESSION: 1. Extensive multilevel degenerative disc disease and facet arthropathy with epidural lipomatosis, as on prior imaging. 2. Significantly worsened endplate edema and further severe loss of disc height at the L1-L2 level with a mild posterior subluxation and mild central canal stenosis. 3. Stable moderate to severe thecal sac distortion from epidural lipomatosis at the L2-L3 level with mild central canal stenosis. 4. Moderate thecal sac distortion at the L3-L4 level is mildly improved compared to prior imaging with mild central canal stenosis. Broad-based right posterolateral disc protrusion and endplate spurring with mass effect upon the extraforaminal right L3 nerve root. 5. Stable severe degenerative disc disease at the L4-L5 level with moderate central canal stenosis and severe thecal sac compression. Focal left lateral recess disc extrusion again visible with compression of the left L5 nerve root. 6. Partially visualized moderate spondylosis at the T10-T11 level with at least a mild degree of central canal stenosis and severe left foraminal narrowing due to bulging disc and facet arthropathy.
== END 2023-01-29 10:30 | disposition home or self-care (01) ==
LOC: HO.MRI 10:29
PROVIDERS: PCP Internal Medicine; Visit Provider Internal Medicine
DX: M51.26 Other intervertebral disc displacement, lumbar region (principal)
CPT/HCPCS: 72148

== ENCOUNTER 2023-05-01 08:25 | Outpatient (AMB) | payer OTHER, SELFPAY ==
[2023-05-01 08:27] VITALS: BP 134/68; PULSE 64; O2SAT 98; BMI 37.9
--- NOTE | 2023-05-01 08:27 | A.OFFPC_ITS ---
Vital Signs 05/01/23 08:27 Height 5 ft 7 in Weight 242 lb BMI 37.9 BP 134/68 Blood Pressure Location Lt brachial Position Sitting Pulse 64 Pulse Source Pulse Oximeter Pulse Oximetry (%) 98 Oxygen Delivery Method Room Air Intake Visit Reasons: Coronary artery disease Allergies No Known Allergies Allergy (Verified 05/01/23 08:27) Medication List - Last Reconciled 05/01/23 by Tor Sullivan MD aspirin 81 mg PO DAILY atorvastatin 80 mg PO DAILY gabapentin 100 mg PO BEDTIME 30 days lidocaine 5% 2 patches topical DAILY lisinopril 10 mg PO DAILY 90 days metoprolol tartrate 50 mg PO BID nitroglycerin 0.4 mg sublingual Q5M PRN pantoprazole 40 mg PO DAILY polymyxin B sulf-trimethoprim 10,000 unit- 1 mg/mL (Polytrim) 1 drp ophthalmic (eye) Q3H 7 days ranolazine ER 500 mg PO BID ropinirole 0.75 mg (3 x 0.25 mg) PO BEDTIME 90 days Tobacco use date assessed: 05/01/23 Dental Screening Dental Screen Date: 05/01/23 Did you have a dental visit in the last 12 months?: Yes Did you have a dental problem in the last 6 months where you did not have access to dental care?: No Was dental information given to patient?: Patient has dentist HPI Coronary artery disease HPI Details 58-year-old obese male with coronary art jose alejandro disease hypertension, hypercholesterolemia GERD degenerative disc disease lumbar knee osteoarthritis and recently diagnosed diabetes mellitus patient comes in for follow-up. Patient has complained of low back pain an MRI was done of the lower back as well as referral to neurosurgeon: MRI January 2023Extensive multilevel degenerative disc disease and facet arthropathy with epidural lipomatosis, as on prior imaging. 2. Significantly worsened endplate edema and further severe loss of disc height at the L1-L2 level with a mild posterior subluxation and mild central canal stenosis. 3. Stable moderate to severe thecal sac distortion from epidural lipomatosis at the L2-L3 level with mild central canal stenosis. 4. Moderate thecal sac distortion at the L3-L4 level is mildly improved compared to prior imaging with mild central canal stenosis. Broad-based right posterolateral disc protrusion and endplate spurring with mass effect upon the extraforaminal right L3 nerve root. 5. Stable severe degenerative disc disea se at the L4-L5 level with moderate central canal stenosis and severe thecal sac compression. Focal left lateral recess disc extrusion again visible with compression of the left L5 nerve root. 6. Partially visualized moderate spondyl osis at the T10-T11 level with at least a mild degree of central canal stenosis and severe left foraminal narrowing due to bulging disc and facet arthropathy. Patient also has followed up with Cardiology in November 2022 cardiac-ayers doing good. . Patient is here for follow-up [facility] Medical History (Updated 05/01/23 @ 08:50 by Tor Sullivan MD) Impaired glucose tolerance History of COVID-19 Restless leg syndrome Degenerative disc disease Anxiety Vitamin B12 deficiency Impaired fasting glucose Carpal tunnel syndrome GERD (gastroesophageal reflux disease) Obesity (BMI 30-39.9) Hyperlipidemia HTN (hypertension) CAD (coronary artery disease) Surgical History History of esophagogastroduodenoscopy (EGD) History of colonoscopy History of meniscectomy of right knee History of right knee surgery History of root canal procedure Stented coronary artery Hx of cardiac cath Family History Father CAD (coronary artery disease) Mother Diabetes Lung cancer Social History Housing: Apartment Alcohol intake: never Patient Tobacco Use Status: Former Tobacco user Tobacco use type: Cigarette Years Smoked: quit 2000 hx of 2 pack a day e-Cigarette/Vaping Use: Never Used Second Hand Smoke Exposure: Yes Current occupational status: employed Cognitive needs: No Hearing needs: No Vision needs: No Questionnaire PHQ-9 Over the last 2 weeks, how often have you been bothered by any of the following problems? 1. Little interest or pleasure in doing things: not at all 2. Feeling down, depressed, or hopeless: not at all 3. Trouble falling or staying asleep, or sleeping too much: not at all 4. Feeling tired or having little energy: not at all 5. Poor appetite or overeating: not at all 6. Feeling bad about yourself - or that you are a failure or have let yourself or your family down: not at all 7. Trouble concentrating on things, such as reading the newspaper or watching television: not at all 8. Moving or speaking so slowly that other people could have noticed. Or the opposite - being so fidgety or restless that you have been moving around a lot more than usual: not at all 9. Thoughts that you would be better off or of hurting yourself in some way: not at all Total score: 0 Depression Screening Interpretation: Negative Depression Screening Done: Yes Source: Developed by Drs. Ludin Beltran, Digna Blancas, Carrington Oquendo and colleagues, with an educational eliseo from [employer]. Thrive Questionnaire Date Thrive assessed: 05/01/23 I am a: Patient What is your living situation today?: I have a steady place to live Within the past 12 months, did the food you bought not last and you didn't have the money to get more?: Never true Within the past 12 months, did you worry whether your food would run out before you got money to buy more?: Never true Do you have trouble paying for medicines?: No Do you have trouble getting transportation to medical appointments?: No Do you have trouble paying your heating and electricity bill?: No Do you have trouble taking care of your child, family member or friend?: No Do you have trouble with day-to-day activities such as bathing, preparing meals, shopping, managing finances, etc.?: No Are you currently unemployed and looking for a job?: No Are you interested in more education?: No Currently or been in a relationship where the following occur: no concerns reported THRIVE Score: 0 AUDIT C Alcohol Use Questionnaire (AUDIT-C) 1. How often do you have a drink containing alcohol?: Never 3. How often do you have six or more drinks on one occasion?: Never Total Score: 0 JAZZMINE-7 AMB Questionnaire JAZZMINE-7 Date JAZZMINE - 7 assessed: 05/01/23 Feeling nervous, anxious, or on edge: 0 = Not at all Not being able to stop or control worryin = Not at all Worrying too much about different things: 0 = Not at all Trouble relaxin = Not at all Being so restless that it is hard to sit still: 0 = Not at all Becoming easily annoyed or irritable: 0 = Not at all Feeling afraid as if something awful might happen: 0 = Not at all Total JAZZMINE-7 score (0-4 normal; 5-9 mild; 10-14 moderate; 15-21 severe): 0 Source: Developed by Drs. Lduin Beltran, Digna Blancas, Carrington Oquendo and colleagues, with an educational eliseo from [employer]. Physical exam (Primary Care) Vital Signs: Last Vital Signs Pulse 64 05/01/23 08:27 BP 134/68 05/01/23 08:27 Pulse Ox 98 05/01/23 08:27 Oxygen Delivery Method Room Air 05/01/23 08:27 BMI result Body Mass Index 37.9 Tobacco/Smoking Status: Tobacco use Status Tobacco use date assessed 05/01/23 05/01/23 08:33 Patient Tobacco Use Status Former Tobacco user 05/01/23 08:33 Tobacco use type Cigarette 05/01/23 08:33 e-Cigarette/Vaping Use Never Used 05/01/23 08:33 PHQ-9: PHQ-9 Score PHQ-9: Total score 0 05/01/23 08:33 Depression Screening Interpretation: Negative Thrive Assessment: Date of Thrive Assessment Date Thrive assessed 05/01/23 05/01/23 08:33 Currently or been in a relationship where the following occur: no concerns reported Const General: alert; No acute distress Eyes Conjunctivae: conjunctivae normal Resp Auscultation: clear to auscultation bilaterally Cardio Rate: regular rate Rhythm: regular rhythm GI Inspection: Yes normal to inspection Extrem General: Yes normal to inspection and No edema Results AMB Hemoglobin A1c AMB Hemoglobin A1c 7.5 % Last Edit by Mariann Burton CMA on 05/01/23 08 :48 Assessment and Plan Assessment & Plan (1) Type 2 diabetes mellitus with hyperglycemia: Comment: Dr. Zamorano Code(s): E11.65 - Type 2 diabetes mellitus with hyperglycemia Plan: Decrease the amount of carbohydrate intake, pasta, bread, rice and potatoes are all sugar and that is aside from all the sweet stuff, remember that fruits are good but they are Sweet also. Hemoglobin A1c goal of less than 6.5 (2) Lumbar disc herniation: Comment: January 2023 MRI Code(s): M51.26 - Other intervertebral disc displacement, lumbar region Plan: Patient has been referred to the neurosurgeon MRI done January 2023 (3) CAD (coronary artery disease): Comment: (MIKE to proximal LAD - 09/2014) Code(s): I25.10 - Atherosclerotic heart disease of [place] coronary artery without angina pectoris Plan: Control the cholesterol, weight, blood pressure, diabetes continue with aspirin (4) HTN (hypertension): Code(s): I10 - Essential (primary) hypertension Plan: Continue with blood pressure medication. Decrease salt intake and exercise presently on metoprolol 50 mg twice a day lisinopril 10 mg once a day (5) Hyperlipidemia: Code(s): E78.5 - Hyperlipidemia, unspecified Plan: Avoid fried foods, chicken skin, eggs, butter margarine, pastries and meat. Be it pork or beef they have a lot of cholesterol LDL goal of less than 70 and triglyceride of less than 150 November 2022 LDL of 45 (6) GERD (gastroesophageal reflux disease): Code(s): K21.9 - Gastro-esophageal reflux disease without esophagitis Plan: Avoid the foods that causes that usually spicy foods, tomato products, juices, coffee, soda and foods that your sensitive to. After eating do not lie down, allow 3-4 hours before in lie down. And keep the head of bed above 30 degrees to avoid the acid from going up. (7) Obesity (BMI 30-39.9): Code(s): E66.9 - Obesity, unspecified Plan: Diet and exercise Orders: Orders Microalbumin, Random (w Creat) Today E11.65 - Type 2 diabetes mellitus with hyperglycemia Creatinine Urine Today E11.65 - Type 2 diabetes mellitus with hyperglycemia AMB Hemoglobin A1c Today Z13.9 - Encounter for screening, unspecified Complete Blood Count Auto Diff Today E11.65 - Type 2 diabetes mellitus with hyperglycemia Comprehensive Met. Panel Today E11.65 - Type 2 diabetes mellitus with hyperglycemia Lipid Panel Today E11.65 - Type 2 diabetes mellitus with hyperglycemia, E78.00 - Pure hypercholesterolemia, unspecified Thyroid Stimulating Hormone Today E11.65 - Type 2 diabetes mellitus with hyperglycemia Hemoglobin A1c Today E11.65 - Type 2 diabetes mellitus with hyperglycemia Referrals Ophthalmology Referral E11.65 - Type 2 diabetes mellitus with hyperglycemia Medications: New ibuprofen 800 mg (2 x 400 mg) PO Q8H 30 tabs 0RF E11.65 - Type 2 diabetes eliana itus with hyperglycemia Coding Level of Care Code Est Pt Level 4 (81291) Diagnoses Type 2 diabetes mellitus with hyperglycemia E11.65 Lumbar disc herniation M51.26 CAD (coronary artery disease) I25.10 HTN (hypertension) I10 Hyperlipidemia E78.5 GERD (gastroesophageal reflux disease) K21.9 Obesity (BMI 30-39.9) E66.9
== END 2023-05-01 09:12 | disposition home or self-care (01) ==
PROVIDERS: PCP Internal Medicine; Visit Provider Internal Medicine
DX: E11.65 Type 2 diabetes mellitus with hyperglycemia (principal); M51.26 Other intervertebral disc displacement, lumbar region; I25.10 Atherosclerotic heart disease of native coronary artery without angina pectoris; I10 Essential (primary) hypertension; E78.5 Hyperlipidemia, unspecified; K21.9 Gastro-esophageal reflux disease without esophagitis
CPT/HCPCS: 83036; 99214

== ENCOUNTER 2023-06-12 08:54 | Outpatient (REF) | payer OTHER, SELFPAY ==
--- NOTE | ~2023-06-12 | XR_ITS ---
EXAMINATION: XR LUMBOSACRAL SPINE WITH OBLIQUES CLINICAL INFORMATION: Intervertebral disc displacement lumbar region. COMPARISON: MRI lumbar spine 01/29/2023. TECHNIQUE: AP, lateral neutral, flexion and extension views of the lumbar spine. FINDINGS: The vertebral bodies and posterior elements are normal. The disc spaces are preserved and the vertebral alignment is normal. The paraspinal soft tissues are normal. Mild rightward curvature of the lumbar spine. Advanced multilevel lumbar spondylosis with multilevel loss of disc space height. Grade 1 retrolisthesis of L1 on L2, of L2 on L3, and of L3 on L4. Facet arthritis in the ore-gb-bixyp lumbar spine. Degenerative changes on limited images of the lower thoracic spine. Redemonstration of mild loss of height of imaged lower thoracic vertebral bodies which could be evaluated with dedicated views of the thoracic spine. XR/XR lumbar spine 4V min IMPRESSION: 1. Advanced multilevel lumbar spondylosis with multilevel loss of disc space height. 2. Facet arthritis in the ejp-ya-qknlo lumbar spine. 3. Redemonstration of mild loss of height of imaged lower thoracic vertebral bodies which could be evaluated with dedicated views of the thoracic spine.
== END 2023-06-12 08:55 | disposition home or self-care (01) ==
LOC: HO.HOSX 08:54
PROVIDERS: PCP Internal Medicine; Visit Provider Neurological Surgery
DX: M47.896 Other spondylosis, lumbar region (principal); M43.16 Spondylolisthesis, lumbar region; M54.16 Radiculopathy, lumbar region
CPT/HCPCS: 72110

== ENCOUNTER 2023-06-12 08:54 | Outpatient (AMB) | payer OTHER, SELFPAY ==
--- NOTE | 2023-06-12 08:57 | HO.SPINEOV ---
Intake Intake Visit Reasons: disc displacement, lumbar region Intake Note: Mr. Grimes is here today c/o low back pain extending down to the legs/ MRI at [facility] Resource Specialist Required: No Allergies No Known Allergies Allergy (Verified 06/12/23 08:58) Assessment & Plan Assessment & Plan (1) Low back pain: Code(s): M54.5 - Low back pain (2) Lumbar radiculopathy: Code(s): M54.16 - Radiculopathy, lumbar region Plan Dear colleague, Thank you for referring to our office today. He is a pleasant 58-year-old male who comes in today with a chief complaint of low back pain with radiation into his bilateral lower extremities. He reports his pain has been gradual, and ongoing since 1995. He states that his left leg is the worst, and reports radiation of pain diffusely throughout this leg. He states his left thigh and lower posterior leg / foot also intermittently feel numb. He identifies an initial inciting incident of pulling a child out of the water onto a dock. He reports lying down helps to alleviate his pain, and that standing / walking / working all exacerbate his pain. 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 He has been to physical therapy in the past, but feels it was not helpful for him. He has taken a plethora of dqvx-bpa-cdhlogn remedies in effort to solve this issue, including ibuprofen, Tylenol, lidocaine patches, and pain gel/creams. He is currently prescribed Gabapentin to help mitigate his pain, but even this only provides modest relief. PMH: HTN, angina, HLD, GERD, Hx myocardial infarction with stent placement in 2014 (not currently on anticoagulants), Hx 2 previous knee arthroscopy procedures. Social hx: Patient does not smoke, reports no substance use. Medications: Metoprolol, atorvastatin, ranexa, ropinirole, pantoprazole, lisinopril, aspirin. Allergies: NKDA Physical exam: The patient has 5/5 strength in his upper and lower extremities. No sensational deficits. Reflexes are 2+ intact. The patient is able to ambulate well and rises from seated position without difficulty. (-) Cunningham's, (-) clonus, (-) straight leg raise, however left sided straight leg rasie does cause pain in left buttocks. Imaging review: MRI of the lumbar spine completed here at [facility] shows diffuse spondylosis of the lumbar spine, with a very slight listhesis at L1-2, and mild-moderate central canal and foraminal stenosis at L2-3, L3-4 and L5-S1. Most notably there is severe left-sided foraminal stenosis and moderate right-sided/ central canal stenosis at L4-5. X-ray imaging completed in office today shows a slight levoscoliosis with the apex at L1. There also is re-demonstrated significant loss of disc height has seen on MRI imaging. Impression: Jose Roberto is a pleasant 58-year-old male who comes in today with a chief complaint of low back pain with radiation into his bilateral lower extremities, worse on the left. When describing the radiation of his pain he states it shoots diffusely throughout his left leg and causes intermittent numbness/tingling in his left thigh and left posterior calf/top of his foot. He identifies an initial inciting incident back in the when he was pulling a child out of the water. 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 Given his history and physical I believe the bulk of his symptoms are coming from the central canal / foraminal stenosis seen at L4-5. The patient was evaluated alongside Dr. Ang who offered the patient a L4-5 lumbar decompression to address his lumbar radiculopathy. He will be discussing time off work with his boss and will get back to us regarding a date / time that he would like to have his surgery completed. He understands that we are currently booking out to July. Thank you for allowing us to care for your patient. The total time spent with this visit with this patient was 45 minutes reviewing history, physical exam, X-ray and MRI imaging review, and implementation of treatment plan or further diagnostic testing William Ang MD,PhD [facility] Orders: Orders XR lumbar spine 4V min Today M51.26 - Other intervertebral disc displacement, lumbar region Coding Level of Care Code New Pt Level 4 (18128) Diagnoses Low back pain M54.5 Lumbar radiculopathy M54.16
== END 2023-06-12 09:56 | disposition home or self-care (01) ==
PROVIDERS: PCP Internal Medicine; Referring Provider Internal Medicine; Visit Provider Neurological Surgery
DX: M54.50 Low back pain, unspecified (principal); M54.16 Radiculopathy, lumbar region
CPT/HCPCS: 99204

== ENCOUNTER 2023-08-22 10:00 | Outpatient (AMB) | payer OTHER, SELFPAY ==
[2023-08-22 10:01] VITALS: BP 126/82; PULSE 76; O2SAT 98; BMI 38.1
--- NOTE | 2023-08-22 10:01 | A.OFFPC_ITS ---
Vital Signs 08/22/23 10:01 Height 5 ft 7 in Weight 243 lb BMI 38.1 BP 126/82 Blood Pressure Location Lt brachial Position Sitting Pulse 76 Pulse Source Pulse Oximeter Pulse Oximetry (%) 98 Oxygen Delivery Method Room Air Intake Visit Reasons: DM, CAD Allergies No Known Allergies Allergy (Verified 08/22/23 10:02) Tobacco use date assessed: 05/01/23 Dental Screening Dental Screen Date: 05/01/23 HPI DM, CAD HPI Details [age] Year old obese male with diabetes mellitus CAD hypertension hypercholesterolemia GERD and lumbar disc herniation last seen in 05/15/2023. Patient's colonoscopy is up-to-date 2019. Review of the notes patient has met with the spine [facility] for the back pain and planned procedure. L4-5 lumbar decompression [facility] Medical History (Updated 06/12/23 @ 10:01 by YOVANY Lester) Impaired glucose tolerance History of COVID-19 Restless leg syndrome Degenerative disc disease Anxiety Vitamin B12 deficiency Impaired fasting glucose Carpal tunnel syndrome GERD (gastroesophageal reflux disease) Obesity (BMI 30-39.9) Hyperlipidemia HTN (hypertension) CAD (coronary artery disease) Surgical History History of esophagogastroduodenoscopy (EGD) History of colonoscopy History of meniscectomy of right knee History of right knee surgery History of root canal procedure Stented coronary artery Hx of cardiac cath Family History Father CAD (coronary artery disease) Mother Diabetes Lung cancer Social History Housing: Apartment Alcohol intake: never Patient Tobacco Use Status: Former Tobacco user Tobacco use type: Cigarette Years Smoked: quit 1999 hx of 2 pack a day e-Cigarette/Vaping Use: Never Used Second Hand Smoke Exposure: Yes Current occupational status: employed Cognitive needs: No Hearing needs: No Vision needs: No Questionnaire Thrive Questionnaire Date Thrive assessed: 05/01/23 AUDIT C Alcohol Use Questionnaire (AUDIT-C) 1. How often do you have a drink containing alcohol?: Never 3. How often do you have six or more drinks on one occasion?: Never Total Score: 0 JAZZMINE-7 AMB Questionnaire JAZZMINE-7 Date JAZZMINE - 7 assessed: 05/01/23 Source: Developed by Drs. Ludin Beltran, Digna Blancas, Carrington Oquendo and colleagues, with an educational eliseo from [employer]. Physical exam (Primary Care) Vital Signs: Last Vital Signs Pulse 76 08/22/23 10:01 BP 126/82 08/22/23 10:01 Pulse Ox 98 08/22/23 10:01 Oxygen Delivery Method Room Air 08/22/23 10:01 BMI result Body Mass Index 38.1 Tobacco/Smoking Status: Tobacco use Status Tobacco use date assessed 05/01/23 08/22/23 10:02 Patient Tobacco Use Status Former Tobacco user 08/22/23 10:02 Tobacco use type Cigarette 08/22/23 10:02 e-Cigarette/Vaping Use Never Used 08/22/23 10:02 Thrive Assessment: Date of Thrive Assessment Date Thrive assessed 05/01/23 08/22/23 10:02 Const General: alert; No acute distress Eyes Conjunctivae: conjunctivae normal Resp Auscultation: clear to auscultation bilaterally Cardio Rate: regular rate Rhythm: regular rhythm GI Inspection: Yes normal to inspection Extrem General: Yes normal to inspection and No edema Results AMB Hemoglobin A1c AMB Hemoglobin A1c 7.6 % Last Edit by RAMAN Mckeon on 08/22/23 10:20 Results Reviewed Results Reviewed: Laboratory Last Values Hgb A1c (Clinic) 7.6 % (4.0-6.0) H 08/22/23 10:19 Assessment and Plan Assessment & Plan (1) Type 2 diabetes mellitus with hyperglycemia: Comment: Dr. Zamorano Code(s): E11.65 - Type 2 diabetes mellitus with hyperglycemia Plan: Decrease the amount of carbohydrate intake, pasta, bread, rice and potatoes are all sugar and that is aside from all the sweet stuff, remember that fruits are good but they are Sweet also. Hemoglobin A1c goal of less than 6.5 patient on diet and presently not controlled (2) CAD (coronary artery disease): Comment: (MIKE to proximal LAD - 09/2014) Code(s): I25.10 - Atherosclerotic heart disease of [place] coronary artery without angina pectoris Plan: Control the cholesterol, weight, blood pressure, diabetes on aspirin (3) HTN (hypertension): Code(s): I10 - Essential (primary) hypertension Plan: Continue with blood pressure medication. Decrease salt intake and exercise lisinopril 10 mg once a day metoprolol 50 mg twice a day (4) Hyperlipidemia: Code(s): E78.5 - Hyperlipidemia, unspecified Plan: Avoid fried foods, chicken skin, eggs, butter margarine, pastries and meat. Be it pork or beef they have a lot of cholesterol LDL goal of less than 70 and triglyceride of less than 150 on atorvastatin 80 mg once a day (5) GERD (gastroesophageal reflux disease): Code(s): K21.9 - Gastro-esophageal reflux disease without esophagitis Plan: Avoid the foods that causes that usually spicy foods, tomato products, juices, coffee, soda and foods that your sensitive to. After eating do not lie down, allow 3-4 hours before in lie down. And keep the head of bed above 30 degrees to avoid the acid from going up. (6) Obesity (BMI 30-39.9): Code(s): E66.9 - Obesity, unspecified Plan: Diet and exercise (7) Lumbar disc herniation: Comment: January 2023 MRI Code(s): M51.26 - Other intervertebral disc displacement, lumbar region Plan: Patient has a planned L4-[address] Lovett Orders: Orders Creatinine Urine 3 Months E11.65 - Type 2 diabetes mellitus with hyperglycemia AMB Hemoglobin A1c Today E11.65 - Type 2 diabetes mellitus with hyperglycemia Prostate Specific Antigen Scr 3 Months E11.65 - Type 2 diabetes mellitus with hyperglycemia Medications: New metformin 500 mg PO BIDWMEAL 60 tabs 4RF E11.65 - Type 2 diabetes mellitus with hyperglycemia Changed From gabapentin 100 mg PO BEDTIME 30 days 90 caps 2RF E11.65 - Type 2 diabetes mellitus with hyperglycemia To gabapentin 300 mg PO BEDTIME 30 days 30 caps 2RF E11.65 - Type 2 diabetes mellitus with hyperglycemia Coding Level of Care Code Est Pt Level 4 (17752) Complex EM visit Add On G2211 Diagnoses Type 2 diabetes mellitus with hyperglycemia E11.65 CAD (coronary artery disease) I25.10 HTN (hypertension) I10 Hyperlipidemia E78.5 GERD (gastroesophageal reflux disease) K21.9 Obesity (BMI 30-39.9) E66.9 Lumbar disc herniation M51.26
== END 2023-08-22 11:00 | disposition home or self-care (01) ==
PROVIDERS: PCP Internal Medicine; Visit Provider Internal Medicine
DX: E11.65 Type 2 diabetes mellitus with hyperglycemia (principal); E66.9 Obesity, unspecified; Z68.38 Body mass index [BMI] 38.0-38.9, adult; I25.10 Atherosclerotic heart disease of native coronary artery without angina pectoris; I10 Essential (primary) hypertension; E78.5 Hyperlipidemia, unspecified; K21.9 Gastro-esophageal reflux disease without esophagitis; M51.26 Other intervertebral disc displacement, lumbar region
CPT/HCPCS: 83036; 99214

== ENCOUNTER → 2023-08-23 11:21 | Outpatient (BNV) | payer OTHER, SELFPAY | PROVIDERS: PCP Internal Medicine; Visit Provider Internal Medicine Cardiovascular Disease | DX: R00.1 Bradycardia, unspecified (principal) | CPT/HCPCS: 93010 ==

== ENCOUNTER 2023-09-05 08:52 | Day surgery (SDC) | payer OTHER, SELFPAY ==
--- NOTE | 2023-08-23 | ECG_ITS ---
Test Reason : preop Blood Pressure : / mmHG Vent. Rate : 058 BPM Atrial Rate : 058 BPM P-R Int : 206 ms QRS Dur : 094 ms QT Int : 418 ms P-R-T Axes : 043 051 015 degrees QTc Int : 410 ms Sinus bradycardia Otherwise normal ECG When compared with ECG of 01-JUL-2018 09:40, No significant change was found Referred By: Eri Mcfarlane Electronically Signed By:MIRNA MELENDEZ MD
[2023-08-23 10:15] VITALS: BP 149/98; PULSE 62; RESP 16; O2SAT 98; BMI 37.9
[2023-08-23 11:31] LABS: Hematocrit 42.8 % (42.0-52.0); Mean Corpuscular Volume 88.4 fL (80.0-98.0); Mean Platelet Volume 10.3 fL (9.4-12.4); Platelet Count 222 X10*3/uL (160-400); Red Blood Count 4.84 X10*6/uL (4.60-5.80); Red Cell Distribution Width 12.2 % (11.0-16.0); White Blood Count 6.5 X10*3/uL (4.8-10.8)
[2023-08-23 12:32] LABS: Anion Gap 14 (12-20); Blood Urea Nitrogen 19 mg/dL (9-16); Calcium 8.9 mg/dL (8.4-10.2); Carbon Dioxide 26 mmol/L (22-29); Chloride 104 mmol/L (96-108); Creatinine Clr Calc Pharmacy 114.6; Estimated Glomerular Filt Rate > 60; Glucose Random 183 mg/dL (60-115); Potassium 4.5 mmol/L (3.3-5.1); Sodium 139 mmol/L (135-145)
[2023-09-05] VITALS (11 sets, daily range): BP systolic 120–170; BP diastolic 71–91; PULSE 62–72; RESP 16–18; TEMP 36.1–36.3; O2SAT 94–99; BMI 36.6
--- NOTE | ~2023-09-05 | FL_ITS ---
EXAMINATION: XR FLUOROSCOPY WITH IMAGES CLINICAL INFORMATION: L4-L5 decompression left. COMPARISON: None available. TECHNIQUE: Fluoroscopy Supervised By: Dr. Ang. Fluoroscopy Time: 0.0. Cumulative Dose: 3.38 mGy. DAP: 0.922 Gycm2. Images: 1. FINDINGS: Intraoperative fluoroscopy and spot films were performed during a procedure in the OR. Single lateral image demonstrates a probe at the L4-L5 disc space. Please correlate with Dr. Ang's report for complete details. FL/FL guidance in OR IMPRESSION: Intraoperative fluoroscopy and spot films were obtained. Please see Dr. Ang's report for complete details.
[2023-09-05 09:46] LABS: Glucose, Whole Blood 147 mg/dL (60-115)
--- NOTE | 2023-09-05 09:47 | MHC.SHP ---
Pre-Procedural Eval Section A - 24 Hr Update-Section A only Date of Service: 09/05/23 Section B - Complete if H&P > 30 days Chief Complaint: Radiculopathy, lumbar region Details of Present Illness: Lumbar radiculopathy, left more than right Relevant Social History: None Allergies: Allergies Allergy/AdvReac Type Severity Reaction Status Date / Time No Known Allergies Allergy Verified 08/23/23 10:13 Review of Systems Sugical H&P ROS: Negative: Constitution, Cardiovascular, Respiratory, Neurological, Psychiatric, Hem-Onc, Allergic/Immunologic, Gastrointestinal, Genitourinary, Musculoskeletal, Integumentary, Endocrine and Eyes/Ears/Nose/Throat Exam Surgical H&P Exam: Normal: HEENT, Normal: Extremities, Normal: Skin and Normal: Neurological (No deficits for motor, sensation reflexes) and Not Evaluated: Heart, Not Evaluated: Lungs and Not Evaluated: Abdomen Plan Diagnosis/Plan: Unchanged . Bilateral L4-5 lumbar decompression, left-sided approach Time Spent With Patient Time: Total time managing care of this patient today ____ minutes.
[2023-09-05] MEDS: Lactated Ringers 1,000 ML 100 ML IVCONT (09:53)
--- NOTE | 2023-09-05 09:55 | P.CONAN_ITS ---
Documented by User: Eri Mcfarlane NP 09/04/23 10:27 HPI - Anesthesia Eval Consult details Narrative: 58yo M for L4-5 Decompression, 09/05/23 No recent illness No CP or SOB with working on feet Follows [facility] cardiology for CAD s/p stent 2014. Stable at 11/2022 office visit. No need for nitro ever DM: Newly dx. Starting metformin GERD: ppi controls +Stop bang: High risk john. Encouraged castelan trim. PMFSH Active Problems Active Problems: All Active Problems Lumbar radiculopathy (Acute) Type 2 diabetes mellitus with hyperglycemia (Acute) Cervical disc disorder (Acute) Lumbar disc herniation (Acute) Restless leg syndrome (Acute) Conjunctivitis (Acute) Knee osteoarthritis (Acute) Degenerative disc disease (Acute) COVID-19 virus infection (Acute) Annual physical exam (Acute) Bursitis of right knee (Acute) Osteoarthritis of right knee (Acute) CAD (coronary artery disease) (Acute) HTN (hypertension) (Acute) Hyperlipidemia (Acute) GERD (gastroesophageal reflux disease) (Acute) Low back pain (Acute) Obesity (BMI 30-39.9) (Acute) Past Medical History Medical History (Updated 08/23/23 @ 11:07 by Mishel Madison, GOLDIE) Diabetes Impaired glucose tolerance History of COVID-19 Restless leg syndrome Degenerative disc disease Anxiety Vitamin B12 deficiency Impaired fasting glucose Carpal tunnel syndrome GERD (gastroesophageal reflux disease) Obesity (BMI 30-39.9) Hyperlipidemia HTN (hypertension) CAD (coronary artery disease) Family History Family History Father CAD (coronary artery disease) Mother Diabetes Lung cancer Family history of problems with anesthesia: No Surgical History Surgical History History of esophagogastroduodenoscopy (EGD) History of colonoscopy History of meniscectomy of right knee History of right knee surgery History of root canal procedure Stented coronary artery Hx of cardiac cath History of Problems with Anesthesia: No (O2 sats dropped with colonoscopy.) Social History Social History (Updated 08/23/23 @ 10:46 by Mishel Madison, RN) Household Members: Spouse Housing: House Are you a primary post acute care nurse practitioner to a significant other at home: No Do you presently have visiting nurse or other home services: No Alcohol intake: never Patient Tobacco Use Status: Former Tobacco user Tobacco use type: Cigarette Years Smoked: quit 2000 hx of 2 pack a day Smoked in Last 30 Days: No e-Cigarette/Vaping Use: Never Used Second Hand Smoke Exposure: Yes Use of substances other than those prescribed or required for medical reasons: No Have you been hit, kicked, punched, or otherwise hurt by someone within the past year? If so, by whom?: No Are you DNR?: No Advance Directives: No Advance Directives Information Provided: Yes Advance Directives on File: No Recently lost weight without trying: No Nutrition Risks: No Nutritional Risk Poor oral hygiene: No Current occupational status: employed Current occupation: [employer] Cognitive needs: No Hearing needs: No Vision needs: No Meds Allergies Allergy/AdvReac Type Severity Reaction Status Date / Time No Known Allergies Allergy Verified 08/23/23 10:13 Home Medications ?Medication ?Instructions ?Recorded ?Confirmed ?Last Taken ?Type aspirin 81 mg tablet,delayed 81 mg PO DAILY 10/10/21 08/23/23 Unknown History release nitroglycerin 0.4 mg sublingual 0.4 mg sublingual Q5M PRN Chest 10/10/21 08/23/23 Unknown History tablet Pain atorvastatin 80 mg tablet 80 mg PO BEDTIME 08/23/23 08/23/23 Unknown History flaxseed oil 1,000 mg capsule 1,000 mg PO DAILY 08/23/23 08/23/23 Unknown History folic acid 1 mg tablet 1 mg PO DAILY 08/23/23 08/23/23 Unknown History ibuprofen 400 mg tablet 800 mg PO Q8H PRN Pain 08/23/23 08/23/23 Unknown History lisinopril 10 mg tablet 20 mg PO DAILY 08/23/23 08/23/23 Unknown History omega 4-jzb-rll-fish oil 1,000 mg 1 cap PO DAILY 08/23/23 08/23/23 Unknown History (120 mg-180 mg) capsule (Fish Oil) ranolazine 500 mg tablet,extended 500 mg PO BID 08/23/23 08/23/23 09/05/23 History release,12 hr Exam Height,Weight and Vital Signs: Height 5 ft 7 in Weight 109.769 kg Last Vital Signs Pulse 62 08/23/23 10:15 Resp 16 08/23/23 10:15 BP 149/98 H 08/23/23 10:15 Pulse Ox 98 08/23/23 10:15 O2 Del Method Room Air 08/23/23 10:15 Pertinent Lab Results Pertinent Lab Results: Lab Results 08/23/23 Range/Units 11:13 WBC 6.5 (4.8-10.8) X10*3/uL RBC 4.84 (4.60-5.80) X10*6/uL Hgb 15.0 (14.0-18.0) g/dl Hct 42.8 (42.0-52.0) % MCV 88.4 (80.0-98.0) fL MCH 31.0 (27.0-33.0) pg MCHC 35.0 (31.0-36.0) g/dl RDW 12.2 (11.0-16.0) % Plt Count 222 (160-400) X10*3/uL MPV 10.3 (9.4-12.4) fL Absolute Nucleated RBC 0.000 (0.0-0.012) X10*3/uL Nucleated RBC % (auto) 0.0 (0.0-0.2) /100WBC Sodium 139 (135-145) mmol/L Potassium 4.5 (3.3-5.1) mmol/L Chloride 104 (96-108) mmol/L Carbon Dioxide 26 (22-29) mmol/L Anion Gap 14 (12-20) BUN 19 H (9-16) mg/dL Creatinine 0.84 (0.5-1.4) mg/dL Estim Creat Clear Calc 114.6 Estimated GFR > 60 Random Glucose 183 H (60-115) mg/dL Calcium 8.9 (8.4-10.2) mg/dL Narrative Narrative: EKG 07/2023 Vent. Rate : 058 BPM Atrial Rate : 058 BPM P-R Int : 206 ms QRS Dur : 094 ms QT Int : 418 ms P-R-T Axes : 043 051 015 degrees QTc Int : 410 ms Sinus bradycardia Otherwise normal ECG When compared with ECG of 01-JUL-2018 09:40, No significant change was found Airway Mallampati Class: II TM Dist: >3cm Neck ROM: Full Loose/Missing/Broken Teeth: No Heart: RRR Lungs: CTAB Assessment and Plan Assessment Anesthesia Assessment: Anesthesia Plan Discussed and PAT Visit Final Anesthetic Review Family History of Problems with Anesthesia: No History of Problems with Anesthesia: No (O2 sats dropped with colonoscopy.) Documented by User: Kate Aleman DO 09/05/23 10:00 [facility] Past Medical History Medical History (Updated 08/23/23 @ 11:07 by Mishel Madison, RN) Diabetes Impaired glucose tolerance History of COVID-19 Restless leg syndrome Degenerative disc disease Anxiety Vitamin B12 deficiency Impaired fasting glucose Carpal tunnel syndrome GERD (gastroesophageal reflux disease) Obesity (BMI 30-39.9) Hyperlipidemia HTN (hypertension) CAD (coronary artery disease) Family History Family History Father CAD (coronary artery disease) Mother Diabetes Lung cancer Family history of problems with anesthesia: No Surgical History Surgical History History of esophagogastroduodenoscopy (EGD) History of colonoscopy History of meniscectomy of right knee History of right knee surgery History of root canal procedure Stented coronary artery Hx of cardiac cath History of Problems with Anesthesia: No Social History Social History (Updated 08/23/23 @ 10:46 by Mishel Madison, RN) Household Members: Spouse Housing: House Are you a primary post acute care nurse practitioner to a significant other at home: No Do you presently have visiting nurse or other home services: No Alcohol intake: never Patient Tobacco Use Status: Former Tobacco user Tobacco use type: Cigarette Years Smoked: quit 2000 hx of 2 pack a day Smoked in Last 30 Days: No e-Cigarette/Vaping Use: Never Used Second Hand Smoke Exposure: Yes Use of substances other than those prescribed or required for medical reasons: No Have you been hit, kicked, punched, or otherwise hurt by someone within the past year? If so, by whom?: No Are you DNR?: No Advance Directives: No Advance Directives Information Provided: Yes Advance Directives on File: No Recently lost weight without trying: No Nutrition Risks: No Nutritional Risk Poor oral hygiene: No Current occupational status: employed Current occupation: [employer] Cognitive needs: No Hearing needs: No Vision needs: No Meds Allergies Allergy/AdvReac Type Severity Reaction Status Date / Time No Known Allergies Allergy Verified 08/23/23 10:13 Home Medications ?Medication ?Instructions ?Recorded ?Confirmed ?Last Taken ?Type aspirin 81 mg tablet,delayed 81 mg PO DAILY 10/10/21 08/23/23 Unknown History release nitroglycerin 0.4 mg sublingual 0.4 mg sublingual Q5M PRN Chest 10/10/21 08/23/23 Unknown History tablet Pain atorvastatin 80 mg tablet 80 mg PO BEDTIME 08/23/23 08/23/23 Unknown History flaxseed oil 1,000 mg capsule 1,000 mg PO DAILY 08/23/23 08/23/23 Unknown History folic acid 1 mg tablet 1 mg PO DAILY 08/23/23 08/23/23 Unknown History ibuprofen 400 mg tablet 800 mg PO Q8H PRN Pain 08/23/23 08/23/23 Unknown History lisinopril 10 mg tablet 20 mg PO DAILY 08/23/23 08/23/23 Unknown History omega 8-lum-jmf-fish oil 1,000 mg 1 cap PO DAILY 08/23/23 08/23/23 Unknown History (120 mg-180 mg) capsule (Fish Oil) ranolazine 500 mg tablet,extended 500 mg PO BID 08/23/23 08/23/23 09/05/23 History release,12 hr Exam Exam Date and Time: September 05, 2023 0955 Height,Weight and Vital Signs: Height 5 ft 7 in Weight 109.769 kg Last Vital Signs Pulse 62 08/23/23 10:15 Resp 16 08/23/23 10:15 BP 149/98 H 08/23/23 10:15 Pulse Ox 98 08/23/23 10:15 O2 Del Method Room Air 08/23/23 10:15 Vital Signs Pulse Rate 62 08/23/23 10:15 Respiratory Rate 16 08/23/23 10:15 Blood Pressure 149/98 H 08/23/23 10:15 Pulse Oximetry 98 08/23/23 10:15 Oxygen Delivery Method Room Air 08/23/23 10:15 Temperature 97.0 F 09/05/23 09:25 Pulse Rate 67 09/05/23 09:25 Respiratory Rate 18 09/05/23 09:25 Blood Pressure 170/86 H 09/05/23 09:25 Pulse Oximetry 97 09/05/23 09:25 Oxygen Delivery Method Room Air 09/05/23 09:25 Airway Mallampati Class: II TM Dist: >3cm Neck ROM: Full Loose/Missing/Broken Teeth: No (patient denies any loose or broken teeth) Heart: S1S2 Assessment and Plan Assessment Anesthesia Assessment: Anesthesia Plan Discussed and Chart Reviewed Final Anesthetic Review Family History of Problems with Anesthesia: No History of Problems with Anesthesia: No NPO: Yes ASA Class: III Final Preanesthetic Review: No Changes in Pt Med Stat, Meds/Allgs Chart Reviewed, Consent Obtained/Reviewed and Anes Risks/Benef Reviewed Patient Risk: Intermediate Procedure Risk: Intermediate Anesthetic Plan Anesthetic Plan: GA and Agree w/ Assess. and Plan Disposition: Standard PACU
[2023-09-05] MEDS: methocarbamoL 750 MG TABLET PO (09:57)
[2023-09-05] MEDS: Gabapentin 300 MG CAPSULE PO (09:57)
--- NOTE | 2023-09-05 11:48 | W.PM.OPN ---
Operative Note Operative Note Date of Service: 09/05/23 Narrative: Preoperative Diagnosis: L4-5 spinal stenosis/lateral recess stenosis/neural foraminal stenosis Operation: Left L4-5 with a bilateral Laminotomy, Partial facetectomy and foraminotomy with use of microscope Consent Informed Consent was obtained for this operation. I have explained the nature, purpose and benefits of the operation. I have discussed the risks and benefit of the operation including possible complications or adverse events with patient/family. Alternative(s) were discussed with the patient with their relative benefits and risks as well as the consequences of not accepting the operation were included in obtaining consent. Surgeon: HARRIET GARCIA MD, PHD Procedure Assisted By: Rual Davison Description of Procedure This patient is suffering from neurogenic claudication with the left side is much worse than the right side. MRI shows L4-5 moderate central stenosis and left L4 foraminal stenosis. The patient was offered a decompression. The procedure complications were explained. The patient was consented. The patient was brought to the operating room and endotracheally intubated. The patient was turned in prone position on the Hernando frame. Prep and drape was done followed by timeout. The Physician therapist's assistant provided access. A mid lumbar incision was made followed by release of the paravertebral muscle on the left side to expose the L4-5 lamina and facet joints. An intraoperative x-ray was obtained to confirm the correct level. The microscope was brought in. I took over the procedure. The high-speed drill was used to do a left L4-5 devendra laminotomy until flavum ligament was reached. A #2 Kerrison was used to expand the laminotomy near flush to the pedicles and to include a partial facetectomy. The flavum ligament was opened and resected with a #3 Kerrison to decompress the underlying thecal sac. The flavum ligament was removed to decompress the lateral recess and the exiting left L5 nerve root. A long nerve hook could be easily passed along the medial side of the pedicle as a sign of adequate decompression. I also inspected the L4 foramen and a long nerve root could be easily passed and therefore I deemed a true L4 foraminotomy not necessary. The patient was turned contralaterally. The spinous process was undercut and more flavum ligament was removed towards the contralateral side. The central part was decompressed. The right lateral recess was not narrowed and therefore no decompression was required. The microscope was removed. Hemostasis was done. The physician therapist's assistant close the Incision in 2 layers. Steri-Strips were used to approximate incision. An OpSite with Tegaderm was used to cover the incision. All sponge needle counts were correct. Patient was extubated and transported in stable is to recovery room. Anesthesia: General Estimated Blood Loss (ml): 20 Complications: None Duration of Surgery: Under 60 Minutes Postoperative Plan: Discharge to home
--- NOTE | 2023-09-05 12:00 | P.DS_ITS ---
DS: Providers Provider Date of Service: 09/05/23 Date of discharge: 09/05/23 Primary care physician: Tor Sullivan MD Admitting clinician: Osmin Ang DS: Diagnosis Discharge Diagnosis (1) Lumbar radiculopathy: Status: Acute DS: Summary Time Attestation Discharge Coordination Time (in mins): 5 Quality: Safe Use of Opioids Does Pt have an Active Cancer Diagnosis on the Problem List?: No Quality: Stroke Does the patient have a stroke diagnosis?: No Physical Exam Vital Signs: Vital Signs: Last Vital Signs Temp 97.0 F 09/05/23 09:25 Pulse 67 09/05/23 09:25 Resp 18 09/05/23 09:25 BP 170/86 H 09/05/23 09:25 Pulse Ox 97 09/05/23 09:25 O2 Del Method Room Air 09/05/23 09:25 BMI result Body Mass Index 36.6 DS: Data Data Completed and Pending Labs on day of discharge: Laboratory Results - last 24 hr 09/05/23 09:42 POC Glucose 147 H Discharge Plan Discharge Patient Disposition: Home, Self-Care Referrals: Tor Sullivan MD [Primary Care Provider] - 1 Week Discharge Medications: New docusate sodium [Colace] 100 mg capsule 100 mg PO BID Qty: 20 0RF oxycodone 5 mg tablet 5 mg PO Q4H PRN (Reason: pain) Qty: 20 0RF Rx Instructions: Partial Fill upon patient request. Continued metoprolol tartrate 50 mg tablet 50 mg PO BID Qty: 180 3RF ropinirole 0.25 mg tablet 0.75 mg PO BEDTIME 90 Days Qty: 270 1RF pantoprazole 40 mg tablet,delayed release (DR/EC) 40 mg PO DAILY Qty: 90 2RF ranolazine 500 mg tablet extended release 12 hr 500 mg PO BID atorvastatin 80 mg tablet 80 mg PO BEDTIME lisinopril 10 mg tablet 20 mg PO DAILY ibuprofen 400 mg tablet 800 mg PO Q8H PRN (Reason: Pain) flaxseed oil 1,000 mg Capsule 1,000 mg PO DAILY Rx Instructions: administer with a meal folic acid 1 mg Tablet 1 mg PO DAILY omega 8-lor-qxt-fish oil [Fish Oil] 1,000 mg (120 mg-180 mg) Capsule 1 cap PO DAILY metformin 500 mg tablet 500 mg PO BIDWMEAL Qty: 60 4RF gabapentin 300 mg capsule 300 mg PO BEDTIME 30 Days Qty: 30 2RF aspirin 81 mg tablet,delayed release (DR/EC) 81 mg PO DAILY nitroglycerin 0.4 mg tablet, sublingual 0.4 mg sublingual Q5M PRN (Reason: Chest Pain) Rx Instructions: do not exceed 3 doses per episode polymyxin B sulf-trimethoprim [Polytrim] 10,000 unit- 1 mg/mL drops 1 drp ophthalmic (eye) Q3H 7 Days Qty: 10 0RF Rx Instructions: while awake; do not exceed 6 doses in 24 hours lidocaine 5 % adhesive patch,medicated 2 patch topical DAILY Qty: 180 3RF Rx Instructions: leave on most painful area for up to 12 hrs Discharge Orders: Discharge Order (Routine); Ordered 09/05/23 Ordered By: Raul Lujan Diet: Advance to usual diet Activity on Discharge: As tolerated Activity Restrictions/Additional Instructions: After your spinal surgery we ask you to observe the following restrictions/guidelines: Activity: It is normal to feel some discomfort as you increase your activity, but that will improve with time. We ask you avoid heavy lifting or acitivities that cause pain. As a general rule, 8lbs is a safe limit for lifting right after surgery. Walk as much as you feel comfortable but not to exhaustion. You will feel extra tired the first few days after surgery. Stay well hydrated. It is OK to walk up and down stairs You may return to driving when you are off narcotics (such as vicodin, oxycodone, dilaudid, etc), and you are back to normal functional capacity. If you have any concerns please check with office before driving. Return to work is specific to each patient and each surgery, so please speak with your doctor/PA at first follow up. Please bring paperwork such as FMLA at that time if you need it filled out. Medications: For optimum pain control, it is best to start with a combination of 500 mg of Tylenol every 4 hours with 600 mg of Motrin every 8 hours, and use narcotics as needed in between for breakthrough pain. We will give you a short supply of narcotics after surgery (usually one weeks worth). If you need more please call the office but do not use more than prescribed. You will need to give our office 48 hours notice if you need narcotics refilled and we do not fill narcotics on weekends or evenings. If you are on a narcotic, it is a good idea to take a stool softener such as colace or senna to avoid constipation If you take blood thinner such as aspirin, Plavix, Coumadin, Effient, Eliquis etc for conditions such as Afib, DVT, Pulmonary embolus, coronary disease, stents etc please speak with your surgeon about specific details as to when you can resume these medications. You can resume NSAIDs on post op day 1 (eg: Motrin, Naproxen, etc). Follow up: Please call the office, , after surgery to arrange a 3 week follow up for wound check. Wound Care: You may remove your dressing on the first day after surgery. ?You may ?leave open to air. Please do not remove the steri strips underneath. they will fall off on their own in one week. IT IS NORMAL FOR THE WOUND TO OOZE OR BE BLOODY FOR A FEW DAYS AFTER SURGERY. ?IF THIS HAPPENS JUST PLACE NEW DRESSING OVER IT TO AVOID STAINING CLOTHES. You may shower on post op day # 1 We ask that you do not let the water soak the wound. If it does get wet, just towel dry lightly. Please do not scrub your incision or place any type of chemical/ointment on the wound. No tub baths, pools or jacuzzis for one month. If you have any leaking or redness from your wound, or fevers, please call office Print Language: Indonesian
[2023-09-05] MEDS: oxyCODONE HCl Immed Release 5 MG TABLET PO (13:59)
== END 2023-09-05 14:50 | disposition home or self-care (01) ==
PROVIDERS: Nurse Practitioner; PCP Internal Medicine; Visit Provider Neurological Surgery
PROC: (CPT 63047; principal; 2023-09-05 12:00)
DX: M54.16 Radiculopathy, lumbar region (principal); M48.062 Spinal stenosis, lumbar region with neurogenic claudication
CPT/HCPCS: 63047; 36415; 80048; 82947; 85027; 93005; J0131; J0690; J1100; J1596; J1885; J2250; J2405; J2704; J3010

== ENCOUNTER → 2023-09-05 08:52 | Outpatient (BNV) | payer OTHER, SELFPAY | PROVIDERS: PCP Internal Medicine; Visit Provider Neurological Surgery | DX: M54.16 Radiculopathy, lumbar region (principal) | CPT/HCPCS: 63047; 99499 ==

== ENCOUNTER 2023-09-27 11:18 | Outpatient (AMB) | payer OTHER, SELFPAY ==
--- NOTE | 2023-09-27 11:22 | A.SPINEOV_ITS ---
Intake Visit Reasons: 1st post op Intake Note: Mr. Grimes is here for his 1st post op appointment. 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 The pain that he was having going down his leg before surgery is gone. His recovery has been uneventful. His wound healed up beautifully. He is still having some aching in his back with prolonged standing, so I do not think he is ready to go back to work but I think it a few weeks he should be able to resume normal activities. He will give us a call and let us know in a few weeks how he is feeling and if it is time to go back to work we would be happy to provide him a note. Ward quiñonez will see him back in 6 weeks. Raul Ang MD, PhD [facility] Coding Level of Care Code Global (82356) Diagnoses Lumbar radiculopathy M54.16
== END 2023-09-27 11:35 | disposition home or self-care (01) ==
PROVIDERS: PCP Internal Medicine; Visit Provider Physician Assistant
DX: M54.16 Radiculopathy, lumbar region (principal)
CPT/HCPCS: 99024

== ENCOUNTER → 2023-09-27 11:18 | Outpatient (BNVA) | payer OTHER, SELFPAY | PROVIDERS: PCP Internal Medicine; Visit Provider Physician Assistant ==

== ENCOUNTER 2023-11-07 08:54 | Outpatient (AMB) | payer OTHER, SELFPAY ==
[2023-11-07 09:14] VITALS: BP 116/78; PULSE 79; O2SAT 98; BMI 38.1
--- NOTE | 2023-11-07 09:14 | A.OFFPC_ITS ---
Vital Signs 11/07/23 09:14 Height 5 ft 7 in Weight 110.223 kg BMI 38.1 BP 116/78 Blood Pressure Location Lt brachial Position Sitting Pulse 79 Pulse Source Pulse Oximeter Pulse Oximetry (%) 98 Oxygen Delivery Method Room Air Intake Visit Reasons: Annual Exam Allergies No Known Allergies Allergy (Verified 11/07/23 09:14) Medication List - Last Reconciled 11/07/23 by Tor Sullivan MD aspirin 81 mg PO DAILY atorvastatin 80 mg PO BEDTIME docusate sodium (Colace) 100 mg PO BID flaxseed oil 1,000 mg PO DAILY folic acid 1 mg PO DAILY gabapentin 300 mg PO BEDTIME 30 days ibuprofen 800 mg PO Q8H PRN lidocaine 5% 2 patches topical DAILY lisinopril 20 mg PO DAILY metformin 500 mg PO BIDWMEAL metoprolol tartrate 50 mg PO BID multivitamin 1 tab PO DAILY nitroglycerin 0.4 mg sublingual Q5M PRN omega 3-zyy-sxw-fish oil 1,000 mg (120 mg-180 mg) (Fish Oil) 1 cap PO DAILY oxycodone 5 mg PO Q4H PRN pantoprazole 40 mg PO DAILY ranolazine ER 500 mg PO BID ropinirole 0.75 mg (3 x 0.25 mg) PO BEDTIME 90 days Tobacco use date assessed: 05/01/23 Dental Screening Dental Screen Date: 11/07/23 Did you have a dental visit in the last 12 months?: Yes Did you have a dental problem in the last 6 months where you did not have access to dental care?: No Was dental information given to patient?: Patient has dentist HPI Annual Exam HPI Details 58-year-old obese male with diabetes robert litus coronary artery disease hypertension hypercholesterolemia GERD and history of lumbar disc herniation last seen in July 2023. Patient is here for physical exam colonoscopy November 2018. Review of the notes has followed up with neurosurgeon regarding the rumble radiculopathy had lumbar decompression August. bilateral knee pain [facility] Medical History (Updated 11/07/23 @ 09:49 by Tor Sullivan MD) Diabetes Impaired glucose tolerance History of COVID-19 Restless leg syndrome Degenerative disc disease Anxiety Vitamin B12 deficiency Impaired fasting glucose Carpal tunnel syndrome GERD (gastroesophageal reflux disease) Obesity (BMI 30-39.9) Hyperlipidemia HTN (hypertension) CAD (coronary artery disease) Surgical History History of esophagogastroduodenoscopy (EGD) History of colonoscopy History of meniscectomy of right knee History of right knee surgery History of root canal procedure Stented coronary artery Hx of cardiac cath Family History (Updated 11/07/23 @ 09:33 by Tor Sullivan MD) Father CAD (coronary artery disease) Mother Diabetes Lung cancer Sister Ovarian cancer Social History (Updated 08/23/23 @ 10:46 by Mishel Madison RN) Household Members: Spouse Housing: House Are you a primary manager critical care to a significant other at home: No Do you presently have visiting nurse or other home services: No 75 years or older and lives alone: No Alcohol intake: never Comment: counts correct Patient Tobacco Use Status: Former Tobacco user Tobacco use type: Cigarette Years Smoked: quit 1999 hx of 2 pack a day e-Cigarette/Vaping Use: Never Used Second Hand Smoke Exposure: Yes Current occupational status: employed Current occupation: [employer] Cognitive needs: No Hearing needs: No Vision needs: Yes Questionnaire PHQ-9 Over the last 2 weeks, how often have you been bothered by any of the following problems? 1. Little interest or pleasure in doing things: not at all 2. Feeling down, depressed, or hopeless: not at all 3. Trouble falling or staying asleep, or sleeping too much: not at all 4. Feeling tired or having little energy: not at all 5. Poor appetite or overeating: not at all 6. Feeling bad about yourself - or that you are a failure or have let yourself or your family down: not at all 7. Trouble concentrating on things, such as reading the newspaper or watching television: not at all 8. Moving or speaking so slowly that other people could have noticed. Or the opposite - being so fidgety or restless that you have been moving around a lot more than usual: not at all 9. Thoughts that you would be better off or of hurting yourself in some way: not at all Total score: 0 Depression Screening Interpretation: Negative Depression Screening Done: Yes 50676 - PHQ-9 Billing: Yes Source: Developed by Drs. Ludin Beltran, Digna Blancas, Carrington Oquendo and colleagues, with an educational eliseo from [employer]. Thrive Questionnaire Date Thrive assessed: 11/07/23 I am a: Patient What is your living situation today?: I choose not to answer this question Within the past 12 months, did the food you bought not last and you didn't have the money to get more?: I choose not to answer this question Within the past 12 months, did you worry whether your food would run out before you got money to buy more?: I choose not to answer this question Do you have trouble paying for medicines?: I choose not to answer this question Do you have trouble getting transportation to medical appointments?: I choose not to answer this question Do you have trouble paying your heating and electricity bill?: I choose not to answer this question Do you have trouble taking care of your child, family member or friend?: I choose not to answer this question Do you have trouble with day-to-day activities such as bathing, preparing meals, shopping, managing finances, etc.?: I choose not to answer this question Are you currently unemployed and looking for a job?: I choose not to answer this question Are you interested in more education?: I choose not to answer this question Please select the resources that you would like help with: None Currently or been in a relationship where the following occur: I choose not to answer THRIVE Score: 0 AUDIT C Alcohol Use Questionnaire (AUDIT-C) 1. How often do you have a drink containing alcohol?: 4 or more times a week 2. How many drinks containing alcohol do you have on a typical day when you are drinking?: 10 or more 3. How often do you have six or more drinks on one occasion?: Daily or almost daily Total Score: 12 JAZZMINE-7 AMB Questionnaire JAZZMINE-7 Date JAZZMINE - 7 assessed: 11/07/23 Feeling nervous, anxious, or on edge: 0 = Not at all Not being able to stop or control worryin = Not at all Worrying too much about different things: 0 = Not at all Trouble relaxin = Not at all Being so restless that it is hard to sit still: 0 = Not at all Becoming easily annoyed or irritable: 0 = Not at all Feeling afraid as if something awful might happen: 0 = Not at all Total JAZZMINE-7 score (0-4 normal; 5-9 mild; 10-14 moderate; 15-21 severe): 0 Source: Developed by Drs. Ludin Beltran, Digna Blancas, Carrington Oquendo and colleagues, with an educational eliseo from [employer]. Review of Systems Const Denies poor appetite and Denies weakness Eyes Denies no additional complaints ENT Reports Normal hearing present, Denies dizziness, Denies nasal congestion, Denies tinnitus and Denies sore throat Card Denies chest pain, Denies syncope, Denies rapid heart rate and Denies dyspnea Resp Denies cough and Denies dyspnea GI Denies change in stool character, Reports constipation, Denies diarrhea, Denies nausea and Denies vomiting Denies dysuria and Denies urinary frequency Neuro Reports Normal hearing present, Denies confusion, Denies dizziness, Denies syncope and Denies weakness Psych Denies confusion Physical exam (Primary Care) Vital Signs: Last Vital Signs Pulse 79 11/07/23 09:14 BP 116/78 11/07/23 09:14 Pulse Ox 98 11/07/23 09:14 Oxygen Delivery Method Room Air 11/07/23 09:14 BMI result Body Mass Index 38.1 Tobacco/Smoking Status: Tobacco use Status Tobacco use date assessed 05/01/23 11/07/23 09:15 Patient Tobacco Use Status Former Tobacco user 11/07/23 09:15 Tobacco use type Cigarette 11/07/23 09:15 e-Cigarette/Vaping Use Never Used 11/07/23 09:15 PHQ-9: PHQ-9 Score PHQ-9: Total score 0 11/07/23 09:28 Depression Screening Interpretation: Negative Thrive Assessment: Date of Thrive Assessment Date Thrive assessed 11/07/23 11/07/23 09:15 Currently or been in a relationship where the following occur: I choose not to answer Const General: alert and awake; No confusion Orientation/consciousness: No confusion HENMT Head: Yes normocephalic Ears: external ears normal and TM's normal bilaterally Face and sinus: Yes normal facial exam Mouth: moist mucous membranes Throat: Yes tonsils normal Eyes Conjunctivae: conjunctivae normal Pupils: Equal, round and reactive pupils present and Pupil accommodation reflex normal Direct Ophthalmoscopy: normal light reflex Neck Neck: No lymphadenopathy Thyroid: Thyroid normal Chest Chest palpation & inspection: normal inspection of the chest Resp Effort & Inspection: normal respiratory effort and no audible wheezes Auscultation: clear to auscultation bilaterally, no crackles, no wheezes and lung sounds not diminished Cardio Rate: regular rate Rhythm: regular rhythm Peripheral pulses: radial pulses present and dorsalis pedis present GI Other: declined Palpation (GI): no masses Auscultation: normal bowel sounds and normoactive bowel sounds Rectal Exam - Male: Yes deferred Male General Exam: Yes normal external exam Skin Other: skin desquamation L 4-5th toe Rashes: no rashes Neuro General: deep tendon reflexes 2+ bilaterally and No confusion Cranial nerves: Yes Equal, round and reactive pupils present, Yes Midline tongue present, Yes Normal hearing present and Yes Ability to bilaterally elevate shoulders present Cognition (Neuro): normal cognition Gait exam (Neuro): Normal gait present Motor exam (neuro): 5/5 motor strength present throughout Deep tendon reflexes (DTR's): Right brachioradialis reflex intensity grade: 2+, Left brachioradialis reflex intensity grade: 2+, Right patellar reflex intensity grade: 2+ and Left patellar reflex intensity grade: 2+ Extrem General: No edema Results AMB Hemoglobin A1c AMB Hemoglobin A1c 7.8 % Last Edit by Mariann Burton CMA on 11/07/23 09 :26 Immunizations Boostrix Tdap 2.5 Lf unit-8 mcg-5 Lf/0.5 mL intramuscular syringe Performing Provider: Tor Sullivan MD Performing Location: [facility] Administered by: Mariann Burton CMA on 11/07/23 09:54 Dose Route Admin Location Dispensed Lot Number Expiration Date SDC Drug Abuse Resistance Education Officer 0.5 mL IM Left Deltoid 0.5 mL [id number] 11/16/25 [id number] [employer] VIS Given Date VIS Provided VIS Publication Date 11/07/23 Single Vaccine 20 Eligibility Eligibility Date Funding Source Not [facility] Eligible 11/07/23 Private Results Reviewed Results Reviewed: Laboratory Last Values Hgb A1c (Clinic) 7.8 % (4.0-6.0) H 11/07/23 09:15 Assessment and Plan Assessment & Plan (1) Annual physical exam: Code(s): Z00.00 - Encounter for general adult medical examination without abnormal findings Plan: Patient is advised to eat healthy, keep well hydrated, keep active and have adequate sleep. (2) Type 2 diabetes mellitus with hyperglycemia: Comment: Dr. Zamorano Code(s): E11.65 - Type 2 diabetes mellitus with hyperglycemia Plan: Decrease the amount of carbohydrate intake, pasta, bread, rice and potatoes are all sugar and that is aside from all the sweet stuff, remember that fruits are good but they are Sweet also. Hemoglobin A1c goal of less than 6.5. Patient is on metformin 500 mg twice a day (3) Lumbar radiculopathy: Comment: August [address] Ang Code(s): M54.16 - Radiculopathy, lumbar region Plan: Patient continues to follow-up with neurosurgeon status post surgery in August 2023 (4) Obesity (BMI 30-39.9): Code(s): E66.9 - Obesity, unspecified Plan: Diet and exercise (5) HTN (hypertension): Code(s): I10 - Essential (primary) hypertension Plan: Continue with blood pressure medication. Decrease salt intake and exercise on metoprolol 50 mg twice a day lisinopril 20 mg once a day (6) CAD (coronary artery disease): Comment: (MIKE to proximal LAD - 09/2014) Code(s): I25.10 - Atherosclerotic heart disease of ruby coronary artery without angina pectoris Plan: Control the cholesterol, weight, blood pressure, diabetes on aspirin (7) Hyperlipidemia: Code(s): E78.5 - Hyperlipidemia, unspecified Plan: Avoid fried foods, chicken skin, eggs, butter margarine, pastries and meat. Be it pork or beef they have a lot of cholesterol on atorvastatin 80 mg once a day LDL goal of less than 70 and triglyceride of less than 150. Patient will need blood work in 3 months (8) GERD (gastroesophageal reflux disease): Code(s): K21.9 - Gastro-esophageal reflux disease without esophagitis Plan: Avoid the foods that causes that usually spicy foods, tomato products, juices, coffee, soda and foods that your sensitive to. After eating do not lie down, allow 3-4 hours before in lie down. And keep the head of bed above 30 degrees to avoid the acid from going up. (9) Tinea pedis: Code(s): B35.3 - Tinea pedis Plan: athletes foot cream bid x 1 month Orders: Orders AMB Hemoglobin A1c Today Z13.9 - Encounter for screening, unspecified TDaP Immunization Today Z23 - Encounter for immunization Medications: New Boostrix Tdap (diphth,pertus(acell),tetanus) 0.5 mL IM ONCE 0.5 mL 0RF NS Z23 - Encounter for immunization empagliflozin (Jardiance) 10 mg PO DAILY 30 tabs 3RF E11.65 - Type 2 diabetes mellitus with hyperglycemia Coding Level of Care Code Est Pt Prev Care 40-64y(97807) Diagnoses Annual physical exam Z00.00 Type 2 diabetes mellitus with hyperglycemia E11.65 Lumbar radiculopathy M54.16 Obesity (BMI 30-39.9) E66.9 HTN (hypertension) I10 CAD (coronary artery disease) I25.10 Hyperlipidemia E78.5 GERD (gastroesophageal reflux disease) K21.9 Tinea pedis B35.3
== END 2023-11-07 10:05 | disposition home or self-care (01) ==
PROVIDERS: PCP Internal Medicine; Visit Provider Internal Medicine
DX: Z23 Encounter for immunization (principal); Z00.00 Encounter for general adult medical examination without abnormal findings; E11.65 Type 2 diabetes mellitus with hyperglycemia; I10 Essential (primary) hypertension; I25.10 Atherosclerotic heart disease of native coronary artery without angina pectoris; M54.16 Radiculopathy, lumbar region; E78.5 Hyperlipidemia, unspecified; K21.9 Gastro-esophageal reflux disease without esophagitis; B35.3 Tinea pedis
CPT/HCPCS: 83036; 90471; 90715; 99396

== ENCOUNTER 2024-02-28 09:28 | Outpatient (AMB) | payer OTHER, SELFPAY ==
--- NOTE | 2024-02-28 09:33 | MHC.PC.OV ---
Vital Signs 02/28/24 09:35 Height 5 ft 7 in Weight 236 lb 4 oz BMI 37.0 BP 126/84 Blood Pressure Location Lt brachial Position Sitting Pulse 61 Pulse Source Pulse Oximeter Pulse Oximetry (%) 97 Oxygen Delivery Method Room Air Intake Visit Reasons: DM Allergies No Known Allergies Allergy (Verified 02/28/24 09:38) Tobacco use date assessed: 02/28/24 Dental Screening Dental Screen Date: 02/28/24 Did you have a dental visit in the last 12 months?: Yes Did you have a dental problem in the last 6 months where you did not have access to dental care?: No Was dental information given to patient?: Patient has dentist HPI DM HPI Details The patient is a 59-year-old male presenting with a history of Type 2 Diabetes Mellitus, Hyperlipidemia, and Hypertension for routine follow-up. The patient had a previous lipid panel in 2022 that showed satisfactory cholesterol levels. A request for fasting blood work was given to monitor cholesterol and related parameters, without urgency required. The patient has experienced a 7-pound weight reduction since the last visit, which is attributed to medication adherence. This denotes a positive response to pharmacotherapy for Type 2 Diabetes Mellitus. No signs of needing an increased medication dosage for diabetes were reported; the current dosage appears effective. The patient confirms understanding of the importance of monitoring blood glucose levels. For Hypertension, the patient reports taking Ropinirolel, three tablets nightly, and is due for a refill as of April 2023. Blood pressure remains well-managed under the current regimen. Concerning back pain, the patient acknowledges occurrences after engaging in strenuous activities such as moving heavy items at home. Despite this, patient education on activity modification and pacing oneself has been provided, as back pain resolves within several days without intervention. [facility] Medical History (Updated 02/28/24 @ 09:43 by Tor Sullivan MD) Lumbar disc herniation Degenerative disc disease Diabetes Impaired glucose tolerance History of COVID-19 Restless leg syndrome Anxiety Vitamin B12 deficiency Impaired fasting glucose Carpal tunnel syndrome GERD (gastroesophageal reflux disease) Obesity (BMI 30-39.9) Hyperlipidemia HTN (hypertension) CAD (coronary artery disease) Surgical History History of esophagogastroduodenoscopy (EGD) History of colonoscopy History of meniscectomy of right knee History of right knee surgery History of root canal procedure Stented coronary artery Hx of cardiac cath Family History (Updated 11/07/23 @ 09:33 by Tor Sullivan MD) Father CAD (coronary artery disease) Mother Diabetes Lung cancer Sister Ovarian cancer Social History (Updated 08/23/23 @ 10:46 by Mishel Madison RN) Household Members: Spouse Housing: House Are you a primary customer care manager to a significant other at home: No Do you presently have visiting nurse or other home services: No 75 years or older and lives alone: No Alcohol intake: never Comment: counts correct Patient Tobacco Use Status: Former Tobacco user Tobacco use type: Cigarette Years Smoked: quit 1999 hx of 2 pack a day e-Cigarette/Vaping Use: Never Used Second Hand Smoke Exposure: Yes Current occupational status: employed Current occupation: [employer] Cognitive needs: No Hearing needs: No Vision needs: Yes Questionnaire PHQ-9 Over the last 2 weeks, how often have you been bothered by any of the following problems? 1. Little interest or pleasure in doing things: not at all 2. Feeling down, depressed, or hopeless: not at all 3. Trouble falling or staying asleep, or sleeping too much: not at all 4. Feeling tired or having little energy: not at all 5. Poor appetite or overeating: not at all 6. Feeling bad about yourself - or that you are a failure or have let yourself or your family down: not at all 7. Trouble concentrating on things, such as reading the newspaper or watching television: not at all 8. Moving or speaking so slowly that other people could have noticed. Or the opposite - being so fidgety or restless that you have been moving around a lot more than usual: not at all 9. Thoughts that you would be better off or of hurting yourself in some way: not at all Total score: 0 Source: Developed by Drs. Ludin Beltran, Digna Blancas, Carrington Oquendo and colleagues, with an educational eliseo from [employer]. Thrive Questionnaire Date Thrive assessed: 02/28/24 I am a: Patient What is your living situation today?: I choose not to answer this question Within the past 12 months, did the food you bought not last and you didn't have the money to get more?: I choose not to answer this question Within the past 12 months, did you worry whether your food would run out before you got money to buy more?: I choose not to answer this question Do you have trouble paying for medicines?: I choose not to answer this question Do you have trouble getting transportation to medical appointments?: I choose not to answer this question Do you have trouble paying your heating and electricity bill?: I choose not to answer this question Do you have trouble taking care of your child, family member or friend?: I choose not to answer this question Do you have trouble with day-to-day activities such as bathing, preparing meals, shopping, managing finances, etc.?: I choose not to answer this question Are you currently unemployed and looking for a job?: I choose not to answer this question Are you interested in more education?: I choose not to answer this question Please select the resources that you would like help with: None Currently or been in a relationship where the following occur: I choose not to answer THRIVE Score: 0 AUDIT C Alcohol Use Questionnaire (AUDIT-C) 1. How often do you have a drink containing alcohol?: Monthly or less 2. How many drinks containing alcohol do you have on a typical day when you are drinking?: 1 or 2 3. How often do you have six or more drinks on one occasion?: Never Total Score: 1 JAZZMINE-7 AMB Questionnaire JAZZMINE-7 Date JAZZMINE - 7 assessed: 02/28/24 Feeling nervous, anxious, or on edge: 0 = Not at all Not being able to stop or control worryin = Not at all Worrying too much about different things: 0 = Not at all Trouble relaxin = Not at all Being so restless that it is hard to sit still: 0 = Not at all Becoming easily annoyed or irritable: 0 = Not at all Feeling afraid as if something awful might happen: 0 = Not at all Total JAZZMINE-7 score (0-4 normal; 5-9 mild; 10-14 moderate; 15-21 severe): 0 Source: Developed by Drs. Ludin Beltran, Digna Blancas, Carrington Oquendo and colleagues, with an educational eliseo from [employer]. Physical exam (Primary Care) Vital Signs: Last Vital Signs Pulse 61 02/28/24 09:35 BP 126/84 01/03/25 09:35 Pulse Ox 97 02/28/24 09:35 Oxygen Delivery Method Room Air 02/28/24 09:35 BMI result Body Mass Index 37.0 Tobacco/Smoking Status: Tobacco use Status Tobacco use date assessed 05/01/23 02/28/24 09:35 Patient Tobacco Use Status Former Tobacco user 02/28/24 09:35 Tobacco use type Cigarette 02/28/24 09:35 e-Cigarette/Vaping Use Never Used 02/28/24 09:35 Thrive Assessment: Date of Thrive Assessment Date Thrive assessed 02/28/24 02/28/24 09:35 Currently or been in a relationship where the following occur: I choose not to answer Const General: alert; No acute distress Eyes Conjunctivae: conjunctivae normal Resp Auscultation: clear to auscultation bilaterally Cardio Rate: regular rate Rhythm: regular rhythm GI Inspection: Yes normal to inspection Extrem General: Yes normal to inspection and No edema Results AMB Hemoglobin A1c AMB Hemoglobin A1c 6.1 % Last Edit by Sally Andrea CMA on 02/28/24 09:44 Coding Level of Care Code Est Pt Level 4 (66036) Complex EM visit Add On G2211 Diagnoses Type 2 diabetes mellitus with hyperglycemia, without long-term current use of insulin E11.65 Diabetes mellitus jail insulin use: without moth exterminator use Coronary artery disease involving [place] coronary artery of [place] heart without angina pectoris I25.10 Associated angina: without angina Coronary Disease-Associated Artery/Lesion type: [place] artery [place] vs. transplanted heart: [place] heart Primary hypertension I10 Hypertension type: primary hypertension Pure hypercholesterolemia E78.00 Hyperlipidemia type: pure hypercholesterolemia Obesity (BMI 30-39.9) E66.9 Gastroesophageal reflux disease without esophagitis K21.9 Esophagitis presence: without esophagitis Lumbar radiculopathy M54.16 Assessment & Plan Assessment & Plan (1) Type 2 diabetes mellitus with hyperglycemia: Comment: Dr. Zamorano Code(s): E11.65 - Type 2 diabetes mellitus with hyperglycemia Category: Medical Qualifiers: Diabetes mellitus jail insulin use: without moth exterminator use Qualified Code(s): E11.65 - Type 2 diabetes mellitus with hyperglycemia Plan: Decrease the amount of carbohydrate intake, pasta, bread, rice and potatoes are all sugar and that is aside from all the sweet stuff, remember that fruits are good but they are Sweet also. Hemoglobin A1c goal of less than 6.5. Patient on Jardiance 10 mg once a day metformin 500 mg twice a day (2) CAD (coronary artery disease): Comment: (MIKE to proximal LAD - 09/2014) Code(s): I25.10 - Atherosclerotic heart disease of [place] coronary artery without angina pectoris Category: Medical Qualifiers: Associated angina: without angina Coronary Disease-Associated Artery/Lesion type: [place] artery [place] vs. transplanted heart: [place] heart Qualified Code(s): I25.10 - Atherosclerotic heart disease of [place] coronary artery without angina pectoris Plan: Control the cholesterol, weight, blood pressure, diabetes placed on ranolazine aspirin. (3) HTN (hypertension): Code(s): I10 - Essential (primary) hypertension Category: Medical Qualifiers: Hypertension type: primary hypertension Qualified Code(s): I10 - Essential (primary) hypertension Plan: Continue with blood pressure medication. Decrease salt intake and exercise on lisinopril 20 mg once a day metoprolol 50 mg once a day. Patient is cautioned on the use of Motrin/ibuprofen (4) Hyperlipidemia: Code(s): E78.5 - Hyperlipidemia, unspecified Category: Medical Qualifiers: Hyperlipidemia type: pure hypercholesterolemia Qualified Code(s): E78.00 - Pure hypercholesterolemia, unspecified Plan: Avoid fried foods, chicken skin, eggs, butter margarine, pastries and meat. Be it pork or beef they have a lot of cholesterol LDL goal of less than 70 and triglyceride of less than 150 patient is on atorvastatin 80 mg once a day (5) Obesity (BMI 30-39.9): Code(s): E66.9 - Obesity, unspecified Category: Medical Plan: Diet and exercise noted weight loss (6) GERD (gastroesophageal reflux disease): Code(s): K21.9 - Gastro-esophageal reflux disease without esophagitis Category: Medical Qualifiers: Esophagitis presence: without esophagitis Qualified Code(s): K21.9 - Gastro-esophageal reflux disease without esophagitis Plan: Avoid the foods that causes that usually spicy foods, tomato products, juices, coffee, soda and foods that your sensitive to. After eating do not lie down, allow 3-4 hours before in lie down. And keep the head of bed above 30 degrees to avoid the acid from going up. (7) Lumbar radiculopathy: Comment: August [address] Ang Code(s): M54.16 - Radiculopathy, lumbar region Category: Medical Plan: 1. - Advise activity modification to prevent exacerbation of back pain; consider use of assisted devices for heavy lifting: - Ensure influenza vaccination has been completed; patient confirmed receipt. - Educate patient on the importance of continued vigilance against infections such as influenza, COVID-19, and RSV. Plan 1. - Advise activity modification to prevent exacerbation of back pain; consider use of assisted devices for heavy lifting: - Ensure influenza vaccination has been completed; patient confirmed receipt. - Educate patient on the importance of continued vigilance against infections such as influenza, COVID-19, and RSV. Orders: Orders Free T4 (Free Thyroxine) Today E11.65 - Type 2 diabetes mellitus with hyperglycemia Microalbumin, Random (w Creat) Today E11.65 - Type 2 diabetes mellitus with hyperglycemia Vitamin B12 and Folate Today E11.65 - Type 2 diabetes mellitus with hyperglycemia Complete Blood Count Auto Diff Today E11.65 - Type 2 diabetes mellitus with hyperglycemia Comprehensive Met. Panel Today E11.65 - Type 2 diabetes mellitus with hyperglycemia Thyroid Stimulating Hormone Today E11.65 - Type 2 diabetes mellitus with hyperglycemia Creatinine Urine Today E11.65 - Type 2 diabetes mellitus with hyperglycemia Lipid Panel Today E11.65 - Type 2 diabetes mellitus with hyperglycemia, E78.00 - Pure hypercholesterolemia, unspecified Prostate Specific Antigen Scr Today E11.65 - Type 2 diabetes mellitus with hyperglycemia AMB Hemoglobin A1c Today Z13.9 - Encounter for screening, unspecified Medications: Refilled ropinirole 0.75 mg (3 x 0.25 mg) PO BEDTIME 90 days 270 tabs 1RF G25.81 - Restless legs syndrome
[2024-02-28 09:35] VITALS: BP 126/84; PULSE 61; O2SAT 97; BMI 37.0
== END 2024-02-28 09:58 | disposition home or self-care (01) ==
PROVIDERS: PCP Internal Medicine; Visit Provider Internal Medicine
DX: E11.65 Type 2 diabetes mellitus with hyperglycemia (principal); I25.10 Atherosclerotic heart disease of native coronary artery without angina pectoris; I10 Essential (primary) hypertension; Z68.37 Body mass index [BMI] 37.0-37.9, adult; E66.9 Obesity, unspecified; E78.00 Pure hypercholesterolemia, unspecified; K21.9 Gastro-esophageal reflux disease without esophagitis; M54.16 Radiculopathy, lumbar region

== ENCOUNTER → 2024-02-28 09:28 | Outpatient (BNVA) | payer OTHER, SELFPAY | PROVIDERS: PCP Internal Medicine; Visit Provider Internal Medicine | DX: E11.65 Type 2 diabetes mellitus with hyperglycemia (principal); I25.10 Atherosclerotic heart disease of native coronary artery without angina pectoris; I10 Essential (primary) hypertension; E78.00 Pure hypercholesterolemia, unspecified; E66.9 Obesity, unspecified; M54.16 Radiculopathy, lumbar region; K21.9 Gastro-esophageal reflux disease without esophagitis; Z79.84 Long term (current) use of oral hypoglycemic drugs; Z79.899 Other long term (current) drug therapy | CPT/HCPCS: 83036; 96127 ==

== ENCOUNTER 2024-05-22 07:01 | Outpatient (REF) | payer OTHER, SELFPAY ==
[2024-05-22 07:16] LABS: MANUAL DIFF FLAG NO
[2024-05-22 07:48] LABS: Basophils Percent Auto 0.5 % (0-2); Eosinophils Absolute Auto 0.2 X10*3/uL (0.0-0.4); Eosinophils Percent Auto 2.3 % (0-4); Hemoglobin 16.1 g/dl (14.0-18.0); Imm Gran Abs Auto 0.04 X10*3/uL (0.00-0.03); Imm Gran Pct Auto 0.5 % (0.0-0.4); Lymphocytes Absolute Auto 2.5 X10*3/uL (1.2-4.9); Lymphocytes Percent Auto 31.6 % (20-40); Mean Corpuscular HGB Conc 34.3 g/dl (31.0-36.0); Mean Corpuscular Hemoglobin 29.9 pg (27.0-33.0); Mean Corpuscular Volume 87.2 fL (80.0-98.0); Mean Platelet Volume 9.9 fL (9.4-12.4); Monocytes Absolute Auto 0.5 X10*3/uL (0.1-1.2); Monocytes Percent Auto 6.8 % (2-11); Neutrophils Absolute Auto 4.6 x10*3/uL (2.0-8.3); Neutrophils Percent Auto 58.3 % (45-73); Platelet Count 245 X10*3/uL (160-400); Red Blood Count 5.39 X10*6/uL (4.60-5.80); Red Cell Distribution Width 13.6 % (11.0-16.0); White Blood Count 7.9 X10*3/uL (4.8-10.8)
[2024-05-22 07:56] LABS: Estimated Average Glucose 134 mg/dL; Hemoglobin A1c % 6.3 % (<6.0)
[2024-05-22 08:09] LABS: Microalbum/Creatinine Ratio Ur 6.1 ug/mg cr (<30)
[2024-05-22 08:20] LABS: Alanine Aminotransferase 32 U/L (0-40); Albumin Level 4.3 g/dL (3.5-5.0); Alkaline Phosphatase 81 U/L (39-117); Anion Gap 11 (12-20); Aspartate Amino Transferase 23 U/L (5-37); Bilirubin Total 0.7 mg/dL (0.0-1.0); Blood Urea Nitrogen 18 mg/dL (9-16); Calcium 9.5 mg/dL (8.4-10.2); Carbon Dioxide 27 mmol/L (22-29); Chloride 107 mmol/L (96-108); Cholesterol 90 mg/dL (<200); Estimated Glomerular Filt Rate > 60; Glucose Random 124 mg/dL (60-115); HDL Cholesterol 26 mg/dL (>40); LDL Cholesterol Calculated 39 mg/dL (<100); Potassium 4.9 mmol/L (3.3-5.1); Sodium 140 mmol/L (135-145); Total Protein 6.7 g/dL (6.5-8.0); Triglycerides 127 mg/dL (<150)
[2024-05-22 08:34] LABS: Free T4 (Free Thyroxine) 0.91 ng/dL (0.71-1.85); Thyroid Stimulating Hormone 2.12 uIU/mL (0.32-4.0)
[2024-05-22 08:46] LABS: Folate 15.5 ng/mL (> or = 4.0); Prostate Specific Antigen Scr 0.34 ng/mL (<0.05-4.0); Vitamin B12 721 pg/mL (200-900)
== END 2024-05-22 07:02 | disposition home or self-care (01) ==
LOC: HO.LAB 07:01
PROVIDERS: PCP Internal Medicine; Visit Provider Internal Medicine
DX: E11.65 Type 2 diabetes mellitus with hyperglycemia (principal); E78.00 Pure hypercholesterolemia, unspecified; Z12.5 Encounter for screening for malignant neoplasm of prostate
CPT/HCPCS: 36415; 80053; 80061; 82043; 82570; 82607; 82746; 83036; 84153; 84439; 84443; 85025

== ENCOUNTER 2024-05-28 10:45 | Outpatient (AMB) | payer OTHER, SELFPAY ==
[2024-05-28 11:03] VITALS: BP 114/72; PULSE 70; O2SAT 95; BMI 35.7
--- NOTE | 2024-05-28 11:03 | A.OFFPC_ITS ---
Vital Signs 05/28/24 11:03 Height 5 ft 7 in Weight 228 lb BMI 35.7 BP 114/72 Blood Pressure Location Lt brachial Position Sitting Pulse 70 Pulse Source Pulse Oximeter Pulse Oximetry (%) 95 Oxygen Delivery Method Room Air Intake Visit Reasons: DM Allergies No Known Allergies Allergy (Verified 05/28/24 11:03) Medication List - Last Reconciled 05/28/24 by Tor Sullivan MD aspirin 81 mg PO DAILY atorvastatin 80 mg PO BEDTIME docusate sodium (Colace) 100 mg PO BID empagliflozin (Jardiance) 10 mg PO DAILY flaxseed oil 1,000 mg PO DAILY folic acid 1 mg PO DAILY gabapentin 300 mg PO BEDTIME 30 days ibuprofen 800 mg PO Q8H PRN lidocaine 5% 2 patches topical DAILY lisinopril 20 mg (2 x 10 mg) PO DAILY metformin 500 mg PO BIDWMEAL metoprolol tartrate 50 mg PO BID multivitamin 1 tab PO DAILY omega 6-zbi-sic-fish oil 1,000 (120-180) mg (Fish Oil) 1 cap PO DAILY pantoprazole 40 mg PO DAILY ranolazine ER 500 mg PO BID ropinirole 0.75 mg (3 x 0.25 mg) PO BEDTIME 90 days Tobacco use date assessed: 02/28/24 Dental Screening Dental Screen Date: 02/28/24 [facility] Medical History (Updated 02/28/24 @ 09:43 by Tor Sullivan MD) Lumbar disc herniation Degenerative disc disease Diabetes Impaired glucose tolerance History of COVID-19 Restless leg syndrome Anxiety Vitamin B12 deficiency Impaired fasting glucose Carpal tunnel syndrome GERD (gastroesophageal reflux disease) Obesity (BMI 30-39.9) Hyperlipidemia HTN (hypertension) CAD (coronary artery disease) Surgical History History of esophagogastroduodenoscopy (EGD) History of colonoscopy History of meniscectomy of right knee History of right knee surgery History of root canal procedure Stented coronary artery Hx of cardiac cath Family History (Updated 11/07/23 @ 09:33 by Tor Sullivan MD) Father CAD (coronary artery disease) Mother Diabetes Lung cancer Sister Ovarian cancer Social History (Updated 08/23/23 @ 10:46 by Mishel Madison RN) Household Members: Spouse Housing: House Are you a primary career development coordinator/teacher to a significant other at home: No Do you presently have visiting nurse or other home services: No 75 years or older and lives alone: No Alcohol intake: never Comment: counts correct Patient Tobacco Use Status: Former Tobacco user Tobacco use type: Cigarette Years Smoked: quit 2000 hx of 2 pack a day e-Cigarette/Vaping Use: Never Used Second Hand Smoke Exposure: Yes Current occupational status: employed Current occupation: [employer] Cognitive needs: No Hearing needs: No Vision needs: Yes Questionnaire PHQ-9 Over the last 2 weeks, how often have you been bothered by any of the following problems? 1. Little interest or pleasure in doing things: not at all 2. Feeling down, depressed, or hopeless: not at all 3. Trouble falling or staying asleep, or sleeping too much: not at all 4. Feeling tired or having little energy: not at all 5. Poor appetite or overeating: not at all 6. Feeling bad about yourself - or that you are a failure or have let yourself or your family down: not at all 7. Trouble concentrating on things, such as reading the newspaper or watching television: not at all 8. Moving or speaking so slowly that other people could have noticed. Or the opposite - being so fidgety or restless that you have been moving around a lot more than usual: not at all 9. Thoughts that you would be better off or of hurting yourself in some way: not at all Total score: 0 Depression Screening Interpretation: Negative Depression Screening Done: Yes 33926 - PHQ-9 Billing: Yes Source: Developed by Drs. Ludin Beltran, Digna Blancas, Carrington Oquendo and colleagues, with an educational eliseo from [employer]. Thrive Questionnaire Date Thrive assessed: 02/28/24 AUDIT C Alcohol Use Questionnaire (AUDIT-C) 1. How often do you have a drink containing alcohol?: Monthly or less 2. How many drinks containing alcohol do you have on a typical day when you are drinking?: 1 or 2 3. How often do you have six or more drinks on one occasion?: Never Total Score: 1 JAZZMINE-7 AMB Questionnaire JAZZMINE-7 Date JAZZMINE - 7 assessed: 02/28/24 Source: Developed by Drs. Ludin Beltran, Carrington Willson and colleagues, with an educational eliseo from [employer]. Physical exam (Primary Care) Vital Signs: Last Vital Signs Pulse 70 05/28/24 11:03 BP 114/72 05/28/24 11:03 Pulse Ox 95 05/28/24 11:03 Oxygen Delivery Method Room Air 05/28/24 11:03 BMI result Body Mass Index 35.7 Tobacco/Smoking Status: Tobacco use Status Tobacco use date assessed 02/28/24 05/28/24 11:04 Patient Tobacco Use Status Former Tobacco user 05/28/24 11:04 Tobacco use type Cigarette 05/28/24 11:04 e-Cigarette/Vaping Use Never Used 05/28/24 11:04 PHQ-9: PHQ-9 Score PHQ-9: Total score 0 05/28/24 11:14 Depression Screening Interpretation: Negative Thrive Assessment: Date of Thrive Assessment Date Thrive assessed 02/28/24 05/28/24 11:04 Const General: alert; No acute distress Eyes Conjunctivae: conjunctivae normal Resp Auscultation: clear to auscultation bilaterally Cardio Rate: regular rate Rhythm: regular rhythm GI Inspection: Yes normal to inspection Extrem General: Yes normal to inspection and No edema Coding Level of Care Code Est Pt Level 4 (44081) Complex EM visit Add On G2211 Diagnoses Coronary artery disease involving [place] coronary artery of [place] heart without angina pectoris I25.10 Associated angina: without angina Coronary Disease-Associated Artery/Lesion type: [place] artery [place] vs. transplanted heart: [place] heart Type 2 diabetes mellitus with hyperglycemia, without long-term current use of insulin E11.65 Diabetes mellitus ocean transportation intermediary insulin use: without ocean transportation intermediary use Gastroesophageal reflux disease without esophagitis K21.9 Esophagitis presence: without esophagitis Obesity (BMI 30-39.9) E66.9 Pure hypercholesterolemia E78.00 Hyperlipidemia type: pure hypercholesterolemia Primary hypertension I10 Hypertension type: primary hypertension Additional Codes PHQ-9 - 19424 - PHQ-9 Billing: Yes ([id number]) Assessment & Plan Assessment & Plan (1) CAD (coronary artery disease): Comment: (MIKE to proximal LAD - 09/2014) Code(s): I25.10 - Atherosclerotic heart disease of [place] coronary artery without angina pectoris Category: Medical Qualifiers: Associated angina: without angina Coronary Disease-Associated Artery/Lesion type: [place] artery [place] vs. transplanted heart: [place] heart Qualified Code(s): I25.10 - Atherosclerotic heart disease of [place] coronary artery without angina pectoris Plan: Control the cholesterol, weight, blood pressure, diabetes patient on aspirin (2) Type 2 diabetes mellitus with hyperglycemia: Comment: Dr. Zamorano Code(s): E11.65 - Type 2 diabetes mellitus with hyperglycemia Category: Medical Qualifiers: Diabetes mellitus ocean transportation intermediary insulin use: without snf use Qualified Code(s): E11.65 - Type 2 diabetes mellitus with hyperglycemia Plan: Decrease the amount of carbohydrate intake, pasta, bread, rice and potatoes are all sugar and that is aside from all the sweet stuff, remember that fruits are good but they are Sweet also. On metformin 500 mg twice a day and Jardiance (3) GERD (gastroesophageal reflux disease): Code(s): K21.9 - Gastro-esophageal reflux disease without esophagitis Category: Medical Qualifiers: Esophagitis presence: without esophagitis Qualified Code(s): K21.9 - Gastro-esophageal reflux disease without esophagitis Plan: Avoid the foods that causes that usually spicy foods, tomato products, juices, coffee, soda and foods that your sensitive to. After eating do not lie down, allow 3-4 hours before in lie down. And keep the head of bed above 30 degrees to avoid the acid from going up. (4) Obesity (BMI 30-39.9): Code(s): E66.9 - Obesity, unspecified Category: Medical Plan: Continue with diet and exercise (5) Hyperlipidemia: Code(s): E78.5 - Hyperlipidemia, unspecified Category: Medical Qualifiers: Hyperlipidemia type: pure hypercholesterolemia Qualified Code(s): E78.00 - Pure hypercholesterolemia, unspecified Plan: Avoid fried foods, chicken skin, eggs, butter margarine, pastries and meat. Be it pork or beef they have a lot of cholesterol LDL goal of less than 70 and triglyceride of less than 150 patient is on atorvastatin (6) HTN (hypertension): Code(s): I10 - Essential (primary) hypertension Category: Medical Qualifiers: Hypertension type: primary hypertension Qualified Code(s): I10 - Essential (primary) hypertension Plan: Continue with blood pressure medication. Decrease salt intake and exercise patient on lisinopril 20 mg once a day metoprolol 50 mg twice a day Plan History of Present Illness The patient is a 59-year-old male presenting for follow-up on several chronic medical conditions namely Coronary Artery Disease, Hypertension, Hypercholesterolemia, Gastroesophageal Reflux Disease, and Diabetes Mellitus. Since the last appointment in February 2024, the patient has experienced an unintended weight change of 8 pounds and reported no concerning symptoms from chronic conditions. The patient adheres to medication regimens for disease management, including atorvastatin for cholesterol, lisinopril and metoprolol for hypertension, and metformin for diabetes. The recent Hemoglobin A1c was stable at 6.3. Prostate health and kidney function appear normal based on recent examinations. There is also an observance of Restless Leg Syndrome managed with ropinirole. The patient is under routine eye care, addressing minor tear duct- related concerns. Health Maintenance - Colon cancer screening: Last colonoscopy on May 22, 2018. - Cardiology evaluation scheduled for next week. - Ophthalmology follow-up scheduled for July. - Bloodwork from April showed normal blood count, kidney function, and electrolytes. - Lifestyle focus on diet and exercise for GERD management. - LDL cholesterol target achievement with atorvastatin use. Social History - Engages in regular physical activity through walking. - Increased water intake noted with Jardiance therapy. - Periodic use of Motrin for knee pain relief. Review of Systems - Neurological: Reports occasional leg swelling possibly due to gabapentin. - Endocrine: Denies nocturia. Reports increased urination during the day. - Ophthalmic: Reports bilateral ocular discharge, occasionally weepy eyes. Physical Exam Results - Labs: Normal blood count; normal electrolytes; Creatinine at 0.9 indicating normal kidney function; Hemoglobin A1c at 6.3; LDL at 39. - Tests and Diagnostics: PSA within normal limits; B12, folic acid, thyroid function normal. Plan Continued management involves the use of aspirin for Coronary Artery Disease, maintaining blood pressure control using lisinopril and metoprolol, with the potential switch to a single 20 mg lisinopril tablet for ease of compliance. Cholesterol control through atorvastatin aims to maintain optimal LDL levels. Diabetes management is supported by metformin and reinforces lifestyle interventions. The patient is advised to adhere to the current regimen and engage in routine follow-up with cardiology and ophthalmology specialists. GERD is managed with pantoprazole complemented by dietary and exercise strategy. Prescription refills should be monitored to prevent interruption of therapy. Further analysis of any symptoms will be guided by follow-up consultations. Patient was informed and verbally consented to the use of an ambient scribe for clinic note documentation during this visit. Discussion Notes I reviewed the patient?s current health status and management strategies for chronic health issues including Coronary Artery Disease, Hypertension, Hypercholesterolemia, GERD, and Diabetes Mellitus. Cardona points emphasized were medication adherence, the importance of routine health maintenance including colonoscopy and eye examinations, and attention to weight changes. We discussed the potential advantage of simplifying lisinopril dosage administration, reinforcing compliance benefits and potential pharmacy coordination. LDL cholesterol control using atorvastatin was acknowledged as successful. Diabetes monitoring reflects favorable HbA1c outcomes, with lifestyle adjustments supporting medical therapy. I advised the continuation of recommended blind eyeletter visits and encouraged ongoing attention to any systemic changes potentially linked to medication side effects. Patient Instructions - Continue taking all prescribed medications as directed. - Follow up with cardiology and ophthalmology as scheduled. - Report any new or worsening symptoms such as excessive leg swelling or significant changes in urination patterns to your healthcare provider. - Maintain diet and exercise regimens advised for GERD management. - Regularly monitor medication refills to ensure continuous treatment. - Ensure adequate hydration, especially when using Jardiance. - Consider discussing medication alterations with your pharmacist for optimal efficiency.
== END 2024-05-28 11:53 | disposition home or self-care (01) ==
LOC: HO.HMCH 10:46
PROVIDERS: PCP Internal Medicine; Visit Provider Internal Medicine
DX: I25.10 Atherosclerotic heart disease of native coronary artery without angina pectoris (principal); E11.65 Type 2 diabetes mellitus with hyperglycemia; E66.9 Obesity, unspecified; Z68.35 Body mass index [BMI] 35.0-35.9, adult; K21.9 Gastro-esophageal reflux disease without esophagitis; E78.00 Pure hypercholesterolemia, unspecified; I10 Essential (primary) hypertension

== ENCOUNTER → 2024-05-28 10:45 | Outpatient (BNVA) | payer OTHER, SELFPAY | PROVIDERS: PCP Internal Medicine; Visit Provider Internal Medicine | DX: E11.65 Type 2 diabetes mellitus with hyperglycemia (principal); I25.10 Atherosclerotic heart disease of native coronary artery without angina pectoris; K21.9 Gastro-esophageal reflux disease without esophagitis; E66.9 Obesity, unspecified; E78.00 Pure hypercholesterolemia, unspecified; I10 Essential (primary) hypertension; Z79.84 Long term (current) use of oral hypoglycemic drugs; Z79.899 Other long term (current) drug therapy | CPT/HCPCS: 96127 ==

== ENCOUNTER 2024-06-02 09:57 | Outpatient (AMB) | payer OTHER, SELFPAY ==
[2024-06-02 09:57] VITALS: BP 120/76; PULSE 62; BMI 35.6
--- NOTE | 2024-06-02 09:57 | MHC.OFFVIS ---
Vital Signs 06/02/24 09:57 Height 5 ft 7 in Weight 227 lb 1.218 oz BMI 35.6 BP 120/76 Blood Pressure Location Lt brachial Position Sitting Pulse 62 Intake Visit Reasons: r/s 03/11/24 1 yr followup w/ekg Intake Note: 1 year follow-up with ekg feeling good Data Deliverables Manager Required: No Allergies No Known Allergies Allergy (Verified 05/28/24 11:03) Medication List - Last Reconciled 06/02/24 by Dave Tolentino MD aspirin 81 mg PO DAILY atorvastatin 80 mg PO BEDTIME empagliflozin (Jardiance) 10 mg PO DAILY flaxseed oil 1,000 mg PO DAILY folic acid 1 mg PO DAILY gabapentin 300 mg PO BEDTIME 30 days ibuprofen 800 mg PO Q8H PRN lidocaine 5% 2 patches topical DAILY lisinopril 10 mg PO DAILY metformin 500 mg PO BIDWMEAL metoprolol tartrate 50 mg PO BID multivitamin 1 tab PO DAILY omega 7-bgg-obf-fish oil 1,000 (120-180) mg (Fish Oil) 1 cap PO DAILY pantoprazole 40 mg PO DAILY ranolazine ER 500 mg PO BID ropinirole 0.75 mg (3 x 0.25 mg) PO BEDTIME 90 days HPI Comments Details: comes for follow-up. Overall he has been doing well from cardiac perspective. He has had no significant exertional symptoms although he does have with limited exercise capacity due to his back issues. He said whenever he goes up or downhill he has back issues and can not exercise. He otherwise takes all his medications. Last LDL well optimized. He said his hemoglobin A1c is also well optimized. He was lost some weight currently not on any GLP 1 antagonist. No prolonged palpitation irregular heartbeat. No orthopnea, PND, leg edema. [facility] Medical History Lumbar disc herniation Degenerative disc disease Diabetes Impaired glucose tolerance History of COVID-19 Restless leg syndrome Anxiety Vitamin B12 deficiency Impaired fasting glucose Carpal tunnel syndrome GERD (gastroesophageal reflux disease) Obesity (BMI 30-39.9) Hyperlipidemia HTN (hypertension) CAD (coronary artery disease) Surgical History History of esophagogastroduodenoscopy (EGD) History of colonoscopy History of meniscectomy of right knee History of right knee surgery History of root canal procedure Stented coronary artery Hx of cardiac cath Family History Father CAD (coronary artery disease) Mother Diabetes Lung cancer Sister Ovarian cancer Social History Household Members: Spouse Housing: House Are you a primary personal carer to a significant other at home: No Do you presently have visiting nurse or other home services: No 75 years or older and lives alone: No Alcohol intake: never Comment: counts correct Patient Tobacco Use Status: Former Tobacco user Tobacco use type: Cigarette Years Smoked: quit 1999 hx of 2 pack a day e-Cigarette/Vaping Use: Never Used Second Hand Smoke Exposure: Yes Current occupational status: employed Current occupation: [employer] Cognitive needs: No Hearing needs: No Vision needs: Yes Review of Systems Const Denies chills, Denies fatigue, Denies fever(s), Denies frequent falls, Denies weakness, Denies weight gain and Denies weight loss ENT Denies dizziness Card Denies chest pain, Denies leg edema, Denies lightheadedness, Denies palpitations, Denies dyspnea, Denies dyspnea on exertion, Denies orthopnea and Denies other (loss of consciousness) Resp Denies cough, Denies dyspnea and Denies dyspnea on exertion GI Denies hematochezia and Denies change in stool character Musc Denies abnormal gait, Denies muscle weakness, Denies numbness, Denies radiating pain into limb and Denies tingling Neuro Denies abnormal gait, Denies dizziness, Denies frequent falls, Denies numbness, Denies tingling and Denies weakness Endo Denies fatigue and Denies palpitations Physical Exam Vital Signs: Last Vital Signs Pulse 62 06/02/24 09:57 BP 120/76 06/02/24 09:57 BMI result Body Mass Index 35.6 Const General: cooperative, healthy appearing, comfortable, no acute distress, alert and awake Nutritional Appearance: obese Orientation/consciousness: patient oriented x3 Limitations: no limitations HEENT Head: Yes normal to inspection, Yes normocephalic and Yes atraumatic Eyes General: appearance normal, both eyes and all related structures Neck Neck: Yes trachea midline and Yes no JVD Carotids: other ( No carotid bruit) Chest Chest palpation & inspection: normal inspection of the chest Resp Effort & Inspection: normal respiratory effort Auscultation: clear to auscultation bilaterally Cardio Jugular venous distension: no JVD Palpation: normal PMI Rate: regular rate Rhythm: regular rhythm Heart sounds: S1 normal heart sound present, S2 normal heart sound present and Other heart sounds present ( S4 present) Peripheral pulses: Peripheral pulses 2+ throughout GI Inspection: Yes normal to inspection and Yes obesity Auscultation: normal bowel sounds Skin General skin exam: elasticity normal and turgor normal Neuro General: patient oriented x3 and no focal motor deficits Extrem General: Yes no clubbing, cyanosis or edema Psych Appearance: grossly normal Office Procedures EKG Details: EKG shows normal sinus rhythm with low-voltage QRS [id number], Complete Assessment & Plan Assessment & Plan (1) CAD (coronary artery disease): Comment: (MIKE to proximal LAD - 09/2014) Code(s): I25.10 - Atherosclerotic heart disease of [place] coronary artery without angina pectoris Category: Medical Qualifiers: Coronary Disease-Associated Artery/Lesion type: [place] artery [place] vs. transplanted heart: [place] heart Associated angina: without angina Qualified Code(s): I25.10 - Atherosclerotic heart disease of [place] coronary artery without angina pectoris Plan: Chronic CAD with remote stenting about 10 years ago for premature atherosclerotic event. Patient is currently doing okay although limited exercise capacity. Would like to check stent patency with the exercise myocardial perfusion imaging if unable to perform a full stress test will switch to vaso dilator myocardial perfusion imaging to assess for any significant myocardial ischemia. Continue aggressive risk factor modification. Continue lifelong aspirin therapy. Continue high-intensity statin therapy with well optimized LDL. Continue aggressive diabetes management goal hemoglobin A1c less than 7%. Continue aggressive blood pressure control. Currently on dual antianginal therapy with ranolazine and metoprolol which might be helping with his symptoms of exertional chest pain which had in the past. Consider GLP 1 antagonist therapy for diabetes as well as vascular disease to reduce future cardiovascular events. (2) HTN (hypertension): Code(s): I10 - Essential (primary) hypertension Category: Medical Qualifiers: Hypertension type: primary hypertension Qualified Code(s): I10 - Essential (primary) hypertension Plan: Hypertension which is currently well optimized advised to monitor blood pressure at home maintain a log. Goal blood pressure less than 130/84. Importance of good blood pressure control was discussed. Importance of good regular physical activity and weight loss was discussed. He understands agrees. Follow up in the clinic otherwise in 1 year's time, sooner p.r.n.. Thank you for allowing me to partake in his care. Orders: Orders CA stress test Today Dave Tolentino MD I25.10 - Atherosclerotic heart disease of [place] coronary artery without angina pectoris NM cardiolite stress test 2 Weeks Dave Tolentino MD I25.10 - Atherosclerotic heart disease of [place] coronary artery without angina pectoris, R07.9 - Chest pain, unspecified Medications: Changed From lisinopril 20 mg (2 x 10 mg) PO DAILY 90 tabs 3RF To lisinopril 10 mg PO DAILY Tor Sullivan MD Coding Level of Care Code Est Pt Level 4 (30710) Complex EM visit Add On G2211 Diagnoses Coronary artery disease involving [place] coronary artery of [place] heart without angina pectoris I25.10 Coronary Disease-Associated Artery/Lesion type: [place] artery [place] vs. transplanted heart: [place] heart Associated angina: without angina Primary hypertension I10 Hypertension type: primary hypertension CPT Codes EKG - CPT: 14425-[id number], Complete ([id number])
== END 2024-06-02 10:15 | disposition home or self-care (01) ==
LOC: HO.HCS 09:57
PROVIDERS: PCP Internal Medicine; Visit Provider Internal Medicine Cardiovascular Disease
DX: I25.10 Atherosclerotic heart disease of native coronary artery without angina pectoris (principal); I10 Essential (primary) hypertension
CPT/HCPCS: 93010; 99214

== ENCOUNTER → 2024-06-02 09:57 | Outpatient (BNVA) | payer OTHER, SELFPAY | PROVIDERS: PCP Internal Medicine; Visit Provider Internal Medicine Cardiovascular Disease | DX: I25.10 Atherosclerotic heart disease of native coronary artery without angina pectoris (principal); I10 Essential (primary) hypertension | CPT/HCPCS: 93005 ==

== ENCOUNTER 2024-07-02 08:46 | Outpatient (AMB) | payer OTHER, SELFPAY ==
--- NOTE | 2024-07-02 09:14 | AM.OFFWIN_ITS ---
Intake Vital Signs 07/02/24 09:17 Weight 226 lb BP 126/90 H Blood Pressure Location Lt brachial Position Sitting Pulse 64 Pulse Source Pulse Oximeter Temp 98.5 F Temp Source Oral Pulse Oximetry (%) 98 Oxygen Delivery Method Room Air Intake Visit Reasons: EP- Diarrhea for the past week Intake Note: Patient here for diarrhea for 1 week. Patient Tobacco Use Status: Former Tobacco user Allergies No Known Allergies Allergy (Verified 07/02/24 09:17) Do you need a note to return to daycare/school/sports/work: No HPI HPI Comments History of Present Illness Details 59 y/o Male patient who presents to the walk in clinic with c/o Diarrhea for 1 week now. Reports having 3-4 episodes of loose stools daily for a week now. Pt States that he usually has loose stools, so diarrhea for him is normal. Reports that usually he would alterante with normal stools with one or two episodes of loose stools once a week. This time the diarrhea has continued for longer period. He has not taken any OTC remedies. [facility] Medical History (Updated 07/02/24 @ 17:58 by Leydi Stinson NP) Diarrhea Lumbar disc herniation Degenerative disc disease Diabetes Impaired glucose tolerance History of COVID-19 Restless leg syndrome Anxiety Vitamin B12 deficiency Impaired fasting glucose Carpal tunnel syndrome GERD (gastroesophageal reflux disease) Obesity (BMI 30-39.9) Hyperlipidemia HTN (hypertension) CAD (coronary artery disease) Surgical History History of esophagogastroduodenoscopy (EGD) History of colonoscopy History of meniscectomy of right knee History of right knee surgery History of root canal procedure Stented coronary artery Hx of cardiac cath Family History Father CAD (coronary artery disease) Mother Diabetes Lung cancer Sister Ovarian cancer Social History Household Members: Spouse Housing: House Are you a primary behavioral health care coordinator to a significant other at home: No Do you presently have visiting nurse or other home services: No 75 years or older and lives alone: No Alcohol intake: never Comment: counts correct Patient Tobacco Use Status: Former Tobacco user Tobacco use type: Cigarette Years Smoked: quit 1999 hx of 2 pack a day e-Cigarette/Vaping Use: Never Used Second Hand Smoke Exposure: Yes Current occupational status: employed Current occupation: [employer] Cognitive needs: No Hearing needs: No Vision needs: Yes Review of Systems Const All systems reviewed & are unremarkable except as noted in HPI and below Physical Exam Vital Signs: Last Vital Signs Temp 98.5 F 07/02/24 09:17 Pulse 64 07/02/24 09:17 BP 126/90 H 07/02/24 09:17 Pulse Ox 98 07/02/24 09:17 Oxygen Delivery Method Room Air 07/02/24 09:17 Const General: no acute distress Nutritional Appearance: obese Orientation/consciousness: patient oriented x3 Resp Effort & Inspection: normal respiratory effort Cardio Heart sounds: S1 normal heart sound present and S2 normal heart sound present GI Inspection: Yes Abdominal panniculus present Palpation (GI): Soft to palpation, not firm, Tenderness to palpation present (GI) (Generalized tenderness. ), no guarding, not rigid, No hepatosplenomegaly present and no hernias Auscultation: normal bowel sounds Neuro General: patient oriented x3, gait normal and moves all extremities Psych Speech and movement: Normal speech and movement present Assessment & Plan Assessment & Plan (1) Diarrhea: Code(s): R19.7 - Diarrhea, unspecified Qualifiers: Diarrhea type: unspecified type Qualified Code(s): R19.7 - Diarrhea, unspecified Plan: Ordered Imodium. Advise to avoid oily/[place] foods Advised to avoid Spicy foods. BLAND diet and hydrate with plenty of fluids. F/U with PCP Medications: New loperamide 2 mg PO Q6H PRN 30 caps 0RF loose stool R19.7 - Diarrhea, unspecified Coding Level of Care Code Est Pt Level 4 (59705) Diagnoses Diarrhea, unspecified type R19.7 Diarrhea type: unspecified type Time Spent (min) 20
[2024-07-02 09:17] VITALS: BP 126/90; PULSE 64; TEMP 36.9; O2SAT 98
== END 2024-07-02 10:06 | disposition home or self-care (01) ==
PROVIDERS: PCP Internal Medicine; Visit Provider Nurse Practitioner Family
DX: R19.7 Diarrhea, unspecified (principal)

== ENCOUNTER → 2024-07-02 08:46 | Outpatient (BNVA) | payer OTHER, SELFPAY | PROVIDERS: PCP Internal Medicine; Visit Provider Nurse Practitioner Family | DX: Z13.89 Encounter for screening for other disorder (principal) ==

== ENCOUNTER → 2024-08-06 09:22 | Outpatient (REF) | payer OTHER, SELFPAY ==
--- NOTE | ~2024-08-06 | NM_ITS ---
EXERCISE MYOCARDIAL PERFUSION STUDY INDICATION: Chest pain with prior CAD evaluated for myocardial ischemia TECHNIQUE: The patient was brought in for an exercise perfusion study on August 06, 2024. Patient performed exercise as per [place] protocol and was injected 35 mCi of sestamibi once target heart rate was achieved. Images were obtained using the SPECT gamma camera interlaced with the gating device. Images were obtained in supine position. Resting perfusion study was performed on August 07, 2024. Patient was administered 35 mCi of sestamibi intravenously at rest. Images were then obtained in supine position. Images obtained without without CT attenuation. Total DLP 150 mGy-cm. Images were processed with the software and compared side to side in short axis, horizontal long axis and vertical long axis views. FINDINGS: Raw images were reviewed The stress perfusion study showed both attenuated as well as nonattenuated corrected images show normal uptake of radiotracer in all segments of the LV myocardium. The gated study shows normal LV systolic function with calculated LVEF of 64%. LV cavity is normal in size. The gated study shows normal systolic wall thickening and contraction of segments. Resting study shows nonattenuated images show normal uptake of radiotracer in all segments of the LV myocardium. Gating at rest reveals normal systolic wall motion with ejection fraction at 57%. The findings are consistent with normal myocardial perfusion. NM/NM cardiolite stress test IMPRESSION: 1. Myocardial perfusion imaging study shows normal myocardial perfusion. 2. Gated LVEF is 64%. 3. Transient ischemic dilatation not present. EKG revealed negative for ischemia. Electronically signed by: Dave Tolentino MD 08/07/2024 03:28 PM EDT
--- NOTE | 2024-08-06 09:24 | CA_ITS ---
Acquisition Time: 2024-08-06 09:34:36 Total Exercise Time: 00:06:06 Test Indications: CAD STENT PATENCY Medications: SEE H&P Protocol: TALIB Max HR: 133 BPM 82% of Pred: 162 BPM Max BP: 152/74 mmHG Max Work Load: 7.1 METS Execise stress test with exercise 6 mins 6 sces of Talib Protocol, requested to stop due to knee pain, achieving 74% MPHR, with reports of SOB, no chest pain, no EKG changes at achieved workload. Test switched to Lexiscan. Pharmacological stress test with Lexiscan, with reports of SOB, 1/10 pain across chest, and dizziness, without any arrythmias, with normotensive response to injection. Nondiagnostic EKG for ischema. In recovery, pt treated with IVP Aminophylline 75 mg to reverse Lexiscan after which pt feeling back to baseline. Nuclear images pending. Test reviewed with Dr. Tolentino. Referred By: Dave Tolentino Electronically Signed By: Garry Garcia
== END ==
LOC: HO.CARD 09:22
PROVIDERS: PCP Internal Medicine; Visit Provider Internal Medicine Cardiovascular Disease
DX: R07.9 Chest pain, unspecified (principal); I25.10 Atherosclerotic heart disease of native coronary artery without angina pectoris
CPT/HCPCS: 78452; 93017; A9500; J0280; J2785

== ENCOUNTER → 2024-08-06 09:24 | Outpatient (BNV) | payer OTHER, SELFPAY | PROVIDERS: PCP Internal Medicine | DX: R06.02 Shortness of breath (principal); I25.10 Atherosclerotic heart disease of native coronary artery without angina pectoris; Z95.5 Presence of coronary angioplasty implant and graft | CPT/HCPCS: 78452; 93016; 93018 ==

== ENCOUNTER 2024-11-12 09:00 | Outpatient (AMB) | payer OTHER, SELFPAY ==
[2024-11-12 09:09] VITALS: BP 116/68; PULSE 62; O2SAT 97; BMI 35.4
--- NOTE | 2024-11-12 09:09 | MHC.PC.OV ---
Vital Signs 11/12/24 09:09 Height 5 ft 7 in Weight 226 lb BMI 35.4 BP 116/68 Blood Pressure Location Lt brachial Position Sitting Pulse 62 Pulse Source Pulse Oximeter Pulse Oximetry (%) 97 Oxygen Delivery Method Room Air Intake Visit Reasons: Annual Exam Allergies No Known Allergies Allergy (Verified 11/12/24 09:10) Medication List - Last Reconciled 11/12/24 by Tor Sullivan MD aspirin 81 mg PO DAILY atorvastatin 80 mg PO BEDTIME empagliflozin (Jardiance) 10 mg PO DAILY flaxseed oil 1,000 mg PO DAILY folic acid 1 mg PO DAILY gabapentin 300 mg PO BEDTIME 30 days ibuprofen 800 mg PO Q8H PRN lidocaine 5% 2 patches topical DAILY lisinopril 10 mg PO DAILY loperamide 2 mg PO Q6H PRN metformin 500 mg PO BIDWMEAL metoprolol tartrate 50 mg PO BID multivitamin 1 tab PO DAILY omega 8-aew-hau-fish oil 1,000 (120-180) mg (Fish Oil) 1 cap PO DAILY pantoprazole 40 mg PO DAILY ranolazine ER 500 mg PO BID ropinirole 1 mg PO BEDTIME 90 days Tobacco use date assessed: 02/28/24 Dental Screening Dental Screen Date: 02/28/24 [facility] Medical History (Updated 07/02/24 @ 17:58 by Leydi Stinson NP) Diarrhea Lumbar disc herniation Degenerative disc disease Diabetes Impaired glucose tolerance History of COVID-19 Restless leg syndrome Anxiety Vitamin B12 deficiency Impaired fasting glucose Carpal tunnel syndrome GERD (gastroesophageal reflux disease) Obesity (BMI 30-39.9) Hyperlipidemia HTN (hypertension) CAD (coronary artery disease) Surgical History History of esophagogastroduodenoscopy (EGD) History of colonoscopy History of meniscectomy of right knee History of right knee surgery History of root canal procedure Stented coronary artery Hx of cardiac cath Family History Father CAD (coronary artery disease) Mother Diabetes Lung cancer Sister Ovarian cancer Social History Household Members: Spouse Housing: House Are you a primary rn complex care to a significant other at home: No Do you presently have visiting nurse or other home services: No 75 years or older and lives alone: No Alcohol intake: never Comment: counts correct Patient Tobacco Use Status: Former Tobacco user Tobacco use type: Cigarette Years Smoked: quit 2000 hx of 2 pack a day e-Cigarette/Vaping Use: Never Used Second Hand Smoke Exposure: Yes Current occupational status: employed Current occupation: [employer], [employer] Cognitive needs: No Hearing needs: No Vision needs: Yes Questionnaire PHQ-9 Over the last 2 weeks, how often have you been bothered by any of the following problems? 1. Little interest or pleasure in doing things: not at all 2. Feeling down, depressed, or hopeless: nearly every day 3. Trouble falling or staying asleep, or sleeping too much: nearly every day 4. Feeling tired or having little energy: nearly every day 5. Poor appetite or overeating: nearly every day 6. Feeling bad about yourself - or that you are a failure or have let yourself or your family down: nearly every day 7. Trouble concentrating on things, such as reading the newspaper or watching television: nearly every day 8. Moving or speaking so slowly that other people could have noticed. Or the opposite - being so fidgety or restless that you have been moving around a lot more than usual: nearly every day 9. Thoughts that you would be better off or of hurting yourself in some way: nearly every day Total score: 24 Depression Screening Interpretation: Positive Depression Screening Done: Yes Source: Developed by Drs. Ludin Beltran, Digna Blancas, Carrington Oquendo and colleagues, with an educational eliseo from [employer]. Thrive Questionnaire Date Thrive assessed: 02/28/24 I am a: Patient What is your living situation today?: I choose not to answer this question Within the past 12 months, did the food you bought not last and you didn't have the money to get more?: I choose not to answer this question Within the past 12 months, did you worry whether your food would run out before you got money to buy more?: I choose not to answer this question Do you have trouble paying for medicines?: I choose not to answer this question Do you have trouble getting transportation to medical appointments?: I choose not to answer this question Do you have trouble paying your heating and electricity bill?: I choose not to answer this question Do you have trouble taking care of your child, family member or friend?: I choose not to answer this question Do you have trouble with day-to-day activities such as bathing, preparing meals, shopping, managing finances, etc.?: I choose not to answer this question Are you currently unemployed and looking for a job?: I choose not to answer this question Are you interested in more education?: I choose not to answer this question Please select the resources that you would like help with: None Currently or been in a relationship where the following occur: I choose not to answer THRIVE Score: 0 AUDIT C Alcohol Use Questionnaire (AUDIT-C) 1. How often do you have a drink containing alcohol?: Never 3. How often do you have six or more drinks on one occasion?: Never Total Score: 0 JAZZMINE-7 AMB Questionnaire JAZZMINE-7 Date JAZZMINE - 7 assessed: 02/28/24 Feeling nervous, anxious, or on edge: 0 = Not at all Not being able to stop or control worryin = Not at all Worrying too much about different things: 0 = Not at all Trouble relaxin = Not at all Being so restless that it is hard to sit still: 0 = Not at all Becoming easily annoyed or irritable: 0 = Not at all Feeling afraid as if something awful might happen: 0 = Not at all Total JAZZMINE-7 score (0-4 normal; 5-9 mild; 10-14 moderate; 15-21 severe): 0 Source: Developed by Drs. Ludin Beltran, Digna Blancas, Carrington Oquendo and colleagues, with an educational eliseo from [employer]. Physical exam (Primary Care) Vital Signs: Last Vital Signs Pulse 62 11/12/24 09:09 BP 116/68 11/12/24 09:09 Pulse Ox 97 11/12/24 09:09 Oxygen Delivery Method Room Air 11/12/24 09:09 BMI result Body Mass Index 35.4 Tobacco/Smoking Status: Tobacco use Status Tobacco use date assessed 02/28/24 11/12/24 09:10 Patient Tobacco Use Status Former Tobacco user 11/12/24 09:10 Tobacco use type Cigarette 11/12/24 09:10 e-Cigarette/Vaping Use Never Used 11/12/24 09:10 PHQ-9: PHQ-9 Score PHQ-9: Total score 24 11/12/24 17:45 Depression Screening Interpretation: Positive Thrive Assessment: Date of Thrive Assessment Date Thrive assessed 02/28/24 11/12/24 09:10 Currently or been in a relationship where the following occur: I choose not to answer Const General: alert and awake HENMT Head: Yes normocephalic Ears: external ears normal and TM's normal bilaterally Face and sinus: Yes normal facial exam Mouth: moist mucous membranes Throat: Yes tonsils normal Eyes Conjunctivae: conjunctivae normal Pupils: Equal, round and reactive pupils present and Pupil accommodation reflex normal Direct Ophthalmoscopy: normal light reflex Neck Neck: No lymphadenopathy Thyroid: Thyroid normal Chest Chest palpation & inspection: normal inspection of the chest Resp Effort & Inspection: normal respiratory effort and no audible wheezes Auscultation: clear to auscultation bilaterally, no crackles, no wheezes and lung sounds not diminished Cardio Rate: regular rate Rhythm: regular rhythm Peripheral pulses: radial pulses present and dorsalis pedis present GI Other: guaiac negative prostate n pedla pulse and pin prick good Palpation (GI): no masses Auscultation: normal bowel sounds and normoactive bowel sounds Male General Exam: Yes normal external exam Skin General skin exam: no rashes or lesions noted Rashes: no rashes Neuro General: deep tendon reflexes 2+ bilaterally Cranial nerves: Yes Equal, round and reactive pupils present, Yes Midline tongue present and Yes Ability to bilaterally elevate shoulders present Cognition (Neuro): normal cognition Gait exam (Neuro): Normal gait present Motor exam (neuro): 5/5 motor strength present throughout Deep tendon reflexes (DTR's): Right brachioradialis reflex intensity grade: 2+, Left brachioradialis reflex intensity grade: 2+, Right patellar reflex intensity grade: 2+ and Left patellar reflex intensity grade: 2+ Extrem General: No edema Results AMB Hemoglobin A1c AMB Hemoglobin A1c 6.4 % Last Edit by Mariann Burton CMA on 11/12/24 09:26 Results Reviewed Results Reviewed: Laboratory Last Values Hgb A1c (Clinic) 6.4 % (4.0-6.0) H 11/12/24 09:11 Coding Level of Care Code Est Pt Prev Care 40-64y(56760) Diagnoses Annual physical exam Z00.00 Type 2 diabetes mellitus with hyperglycemia, without long-term current use of insulin E11.65 Diabetes mellitus superintendent terminal insulin use: without detention use Coronary artery disease involving pilot station coronary artery of pilot station heart without angina pectoris I25.10 Associated angina: without angina Coronary Disease-Associated Artery/Lesion type: pilot station artery [place] vs. transplanted heart: pilot station heart Primary hypertension I10 Hypertension type: primary hypertension Pure hypercholesterolemia E78.00 Hyperlipidemia type: pure hypercholesterolemia Obesity (BMI 30-39.9) E66.9 Gastroesophageal reflux disease without esophagitis K21.9 Esophagitis presence: without esophagitis Lumbar radiculopathy M54.16 Assessment & Plan Assessment & Plan (1) Annual physical exam: Code(s): Z00.00 - Encounter for general adult medical examination without abnormal findings Category: Medical Plan: Patient is advised to eat healthy, keep well hydrated, keep active and have adequate sleep. (2) Type 2 diabetes mellitus with hyperglycemia: Comment: Dr. Zamorano Code(s): E11.65 - Type 2 diabetes mellitus with hyperglycemia Category: Medical Qualifiers: Diabetes mellitus superintendent terminal insulin use: without superintendent terminal use Qualified Code(s): E11.65 - Type 2 diabetes mellitus with hyperglycemia Plan: Decrease the amount of carbohydrate intake, pasta, bread, rice and potatoes are all sugar and that is aside from all the sweet stuff, remember that fruits are good but they are Sweet also. Hemoglobin A1c goal of less than 6.5. Patient is on metformin 500 mg twice a day and Jardiance 10 mg once a day (3) CAD (coronary artery disease): Comment: (MIKE to proximal LAD - 09/2014) Code(s): I25.10 - Atherosclerotic heart disease of pilot station coronary artery without angina pectoris Category: Medical Qualifiers: Associated angina: without angina Coronary Disease-Associated Artery/Lesion type: pilot station artery [place] vs. transplanted heart: pilot station heart Qualified Code(s): I25.10 - Atherosclerotic heart disease of pilot station coronary artery without angina pectoris Plan: Control the cholesterol, weight, blood pressure, diabetes follows up with Cardiology had a stress test done no myocardial perfusion defect on aspirin and ranolazine (4) HTN (hypertension): Code(s): I10 - Essential (primary) hypertension Category: Medical Qualifiers: Hypertension type: primary hypertension Qualified Code(s): I10 - Essential (primary) hypertension Plan: Continue with blood pressure medication. Decrease salt intake and exercise lisinopril 10 mg once a day metoprolol 50 mg twice a day (5) Hyperlipidemia: Code(s): E78.5 - Hyperlipidemia, unspecified Category: Medical Qualifiers: Hyperlipidemia type: pure hypercholesterolemia Qualified Code(s): E78.00 - Pure hypercholesterolemia, unspecified Plan: Avoid fried foods, chicken skin, eggs, butter margarine, pastries and meat. Be it pork or beef they have a lot of cholesterol LDL goal of less than 70 and triglyceride of less than 150 on atorvastatin 80 mg once a day (6) Obesity (BMI 30-39.9): Code(s): E66.9 - Obesity, unspecified Category: Medical Plan: Diet and exercise (7) GERD (gastroesophageal reflux disease): Code(s): K21.9 - Gastro-esophageal reflux disease without esophagitis Category: Medical Qualifiers: Esophagitis presence: without esophagitis Qualified Code(s): K21.9 - Gastro-esophageal reflux disease without esophagitis Plan: Avoid the foods that causes that usually spicy foods, tomato products, juices, coffee, soda and foods that your sensitive to. After eating do not lie down, allow 3-4 hours before in lie down. And keep the head of bed above 30 degrees to avoid the acid from going up. (8) Lumbar radiculopathy: Comment: August [address] Ang Code(s): M54.16 - Radiculopathy, lumbar region Category: Medical Plan: Continue keeping self active Plan History of Present Illness The patient is a 59-year-old male presenting with the management of chronic conditions including diabetes mellitus, hypertension, hypercholesterolemia, and coronary artery disease. The patient has a history of gastroesophageal reflux disease (GERD), hypertension, hypercholesterolemia, and coronary artery disease diagnosed in 2014. He also has diabetes mellitus and lumbar radiculopathy, with the latter last evaluated in May 2024. The patient underwent a colonoscopy in 2018 and is up to date with eye exams, with no retinopathy observed. He follows up with cardiology and had a cardiolite stress test showing normal myocardial perfusion with an ejection fraction of 50-64%. In June, the patient visited an urgent care center for diarrhea and was prescribed loperamide, which helped manage the symptoms. He reports intermittent diarrhea, which may be related to metformin use, although it is not typically intermittent. 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 He reports that the pain has affected his sleep over the past week. The patient denies alcohol, tobacco, and recreational drug use. He reports occasional dizziness upon standing, but denies nausea, vomiting, fever, or swallowing difficulties. Health Maintenance - Colonoscopy last performed in 2018 - Up to date with eye exams, no retinopathy observed - Cardiovascular risk management with cardiolite stress test showing normal myocardial perfusion - Vaccinations: Up to date with COVID and flu vaccines Social History - Denies alcohol, tobacco, and recreational drug use - Reports occasional dizziness upon standing Review of Systems - Cardiovascular: Denies chest pain, reports occasional dizziness upon standing - Gastrointestinal: Reports intermittent diarrhea, denies nausea, vomiting, or blood in stool - Musculoskeletal: Reports back pain affecting sleep - Neurological: Denies headaches, reports occasional dizziness upon standing - Respiratory: Denies dyspnea or cough Physical Exam General: Cooperative, healthy appearing, comfortable, no acute distress and well developed Orientation: Patient oriented x3 Limitations: No limitations Head: Normal to inspection Ears: Hearing grossly normal bilaterally, some earwax present but not obstructive Nose: Normal external nose present, occasional runny nose due to watery eyes Face and sinus: Normal facial exam Eyes: Appearance normal, both eyes and all related structures, no retinopathy noted Neck: Normal visual inspection and Yes full ROM, occasional chokiness in neck when using cell phone Respiratory: Normal respiratory effort and able to speak in complete sentences. Clear to auscultation bilaterally Cardiovascular: Regular rate and rhythm. Normal S1 and S2 GI: Normal to inspection. Soft to palpation and nontender, occasional diarrhea Skin: No rashes or lesions noted Neuro: Patient oriented x3, occasional dizziness when changing positions Extremities: Normal to inspection, occasional knee pain associated with back pain Results - Labs: Hemoglobin A1c 6.4% in current visit, 6.3% in April, 6.1% in February - Labs: LDL cholesterol 39 mg/dL - Tests: Cardiolite stress test showing normal myocardial perfusion, EF 50-64% Plan Patient was informed and verbally consented to the use of an ambient scribe for clinic note documentation during this visit. 1. Gastroesophageal Reflux Disease (Gerd) The patient is advised to continue current management for GERD, including lifestyle modifications such as diet and exercise. Discussion Notes During the visit, I discussed with the patient the importance of managing chronic conditions such as diabetes, hypertension, and coronary artery disease through medication adherence and lifestyle modifications. We reviewed the results of the recent cardiolite stress test, which showed normal myocardial perfusion, and emphasized the need for continued cardiovascular risk management. I also addressed the patient's back pain and recommended muscle relaxants to alleviate symptoms, with caution regarding potential drowsiness. Patient Instructions - Continue taking all prescribed medications as directed. - Follow a healthy diet and exercise regularly to manage GERD and overall health. - Monitor blood sugar levels and maintain A1c below 6.5%. - Use muscle relaxants as needed for back pain, but avoid driving when taking them. - Schedule follow-up appointments with cardiology and primary care as advised. Orders: Orders Complete Blood Count Auto Diff 6 Months E11. - Type 2 diabetes mellitus with hyperglycemia Comprehensive Met. Panel 6 Months . - Type 2 diabetes mellitus with hyperglycemia Hemoglobin A1c 6 Months . - Type 2 diabetes mellitus with hyperglycemia Lipid Panel 6 Months . - Type 2 diabetes mellitus with hyperglycemia, E78.00 - Pure hypercholesterolemia, unspecified Prostate Specific Antigen Scr 6 Months E11. - Type 2 diabetes mellitus with hyperglycemia Microalbumin, Random (w Creat) 6 Months E11. - Type 2 diabetes mellitus with hyperglycemia Magnesium 6 Months E11. - Type 2 diabetes mellitus with hyperglycemia AMB Hemoglobin A1c Today Z13.9 - Encounter for screening, unspecified Free T4 (Free Thyroxine) 6 Months E11. - Type 2 diabetes mellitus with hyperglycemia Thyroid Stimulating Hormone 6 Months E11. - Type 2 diabetes mellitus with hyperglycemia Vitamin B12 and Folate 6 Months E11. - Type 2 diabetes mellitus with hyperglycemia Creatinine Urine 6 Months E11. - Type 2 diabetes mellitus with hyperglycemia Medications: New cyclobenzaprine 10 mg PO TID PRN 30 tabs 0RF muscle spasm
--- OUTSIDE RECORDS SUMMARY | 2024-11-12 10:28 | XMS_ITS | Patient Health Record ---
Author Organization [facility] Address [address] [place] [address] Care Team Providers Care Endo Tech Name Role Phone Tor Sullivan MD Primary Care Provider Ludin Davis [phone] Reason For Referral No Information Medications Medication SIG (Take, Route, Frequency, Duration) Notes Start Date End Date Status Fish Oil 1000 MG 1 capsule Orally Onc e a day Active Metoprolol Tartrate 50 MG TAKE 1 TABLET BY MOUTH TWICE A DAY Oral for 90 Active Lisinopril 20 MG TAKE 1 TABLET BY FAYE TH EVERY DAY Oral for 90 Active Atorvastatin Calcium 80 MG TAKE 1 TABLET BY MOUTH EVERY DAY Oral for 90 Active Ranexa 500 MG TAKE 1 TABLET BY FAYE TH TWICE A DAY Oral for 90 Active Aspirin Adult Low Dose 81 MG 1 tablet Orally Once a day for 30 day(s) Active Pantoprazole Sodium 40 MG 1 tablet Orall y twice a day Active Immunizations Vaccine Route Administration Date Status Comme nts Influenza Unknown 12/26/2017 Administered Social History Tobacco Use: Social History Observation Description Date Details (start date - stop date) Never Smoker NA - NA Tobacco Use/Smoking Question Answer Notes Patient is a nonsmoker Alcohol Screen Question Answer Notes Did you have a drink containing alcohol in the p ast year? No Points 0 Interpretation Negative Section Notes: Nonsmoker; no sig alcohol Problems Problem Type SNOMED Code ICD Code Onset Dates Problem Status W/U Status Risk Notes Problem [id number] Encounter for screening for malignant neoplasm of colon (Z12.11) Active confirmed Problem [id number] Preprocedural examination (Z01.818) Active confirmed Problem Gastroesophageal reflux disease ([id number]) Gastroesophageal reflux disease, esophagitis presence not specified (K21.9) Active confirmed Plan Of Treatment Pending Test Test Name Order Date GI BIOPSY 12/19/2018 Future Test Test Name Order Date UPPER GI ENDOSCOPY 09/16/2018 COLONOSCOPY 09/16/2018 Insurance Providers Payer Name Payer Address Payer Phone Subscriber Number Group Number Insured Name Patient Relationship to Insured Coverage Start Date Coverage End Date [facility] [address] [address] [place] [address] [id number] CHELSEY LUGO Self - patient is the insured Medical (General) History Medical History History ICD Code Hypertension CAD-1 stent 10/01/14--describes [place] neg [place] [address] Tolentino GERD Hyperlipidemia Denies ID,DM,CVA,Lung disease,renal dise ase Surgical History Surgery Date(Month/Year) Knee-right
== END 2024-11-12 09:52 | disposition home or self-care (01) ==
LOC: HO.HMCH 09:01
PROVIDERS: PCP Internal Medicine; Visit Provider Internal Medicine
DX: Z00.00 Encounter for general adult medical examination without abnormal findings (principal); E11.65 Type 2 diabetes mellitus with hyperglycemia; E66.9 Obesity, unspecified; Z68.35 Body mass index [BMI] 35.0-35.9, adult; I25.10 Atherosclerotic heart disease of native coronary artery without angina pectoris; I10 Essential (primary) hypertension; E78.00 Pure hypercholesterolemia, unspecified; K21.9 Gastro-esophageal reflux disease without esophagitis; M54.16 Radiculopathy, lumbar region

== ENCOUNTER → 2024-11-12 09:00 | Outpatient (BNVA) | payer OTHER, SELFPAY | PROVIDERS: PCP Internal Medicine; Visit Provider Internal Medicine | DX: Z00.00 Encounter for general adult medical examination without abnormal findings (principal); E11.65 Type 2 diabetes mellitus with hyperglycemia; I25.10 Atherosclerotic heart disease of native coronary artery without angina pectoris; I10 Essential (primary) hypertension; E78.00 Pure hypercholesterolemia, unspecified; E66.9 Obesity, unspecified; K21.9 Gastro-esophageal reflux disease without esophagitis; M54.16 Radiculopathy, lumbar region | CPT/HCPCS: 83036; 96127 ==